=== PATIENT | female | born 1970 | race Caucasian/White ===

== ENCOUNTER 2017-07-07 22:42 | Emergency (ER) | payer BC, MEDICAID ==
[2017-07-07] MEDS ORDERED: LORAZEPAM INJ 2 MG/1 ML VIAL IV ONE (23:13)
[2017-07-07 23:56] LABS: ABSOLUTE BASOPHILS # (AUTO) 0.1 10^3/uL (0.0-0.2); ABSOLUTE EOSINOPHILS # (AUTO) 0.3 10^3/uL (0.0-0.6); ABSOLUTE LYMPHOCYTES (AUTO) 1.7 10^3/uL (0.5-4.7); ABSOLUTE MONOCYTES (AUTO) 0.5 10^3/uL (0.1-1.4); ABSOLUTE NEUT (AUTO) 5.4 10^3/uL (1.7-8.2); BASOPHILS % (AUTO) 0.8 % (0-2); EOSINOPHILS % (AUTO) 3.3 % (0-6); MEAN CORPUSCULAR HEMOGLOBIN 28.6 pg (27.0-33.4); MEAN CORPUSCULAR HGB CONC 33.3 g/dL (32.0-36.0); MEAN CORPUSCULAR VOLUME 86 fl (80-97); MONOCYTES % (AUTO) 6.5 % (3-13); PLATELET COUNT 229 10^3/uL (150-450); RED BLOOD COUNT 4.88 10^6/uL (3.72-5.28); RED CELL DISTRIBUTION WIDTH 13.3 % (11.5-14.0); SEGMENTED NEUTROPHILS % (AUTO) 68.4 % (42-78); TOTAL CELLS COUNTED % (AUTO) 100 %; WHITE BLOOD COUNT 7.9 10^3/uL (4.0-10.5)
[2017-07-08 00:01] LABS: ALANINE AMINOTRANSFERASE 506 U/L (9-52); ALBUMIN 4.2 g/dL (3.5-5.0); ALKALINE PHOSPHATASE 257 U/L (38-126); ANION GAP 11 (5-19); BILIRUBIN,DIRECT 0.5 mg/dL (0.0-0.4); BILIRUBIN,TOTAL 0.7 mg/dL (0.2-1.3); BLOOD UREA NITROGEN 19 mg/dL (7-20); CALCIUM 9.3 mg/dL (8.4-10.2); CARBON DIOXIDE 24 mmol/L (22-30); CHLORIDE 103 mmol/L (98-107); CREATINE KINASE 91 U/L (30-135); GLUCOSE 116 mg/dL (75-110); LIPASE 200.2 U/L (23-300); POTASSIUM 4.3 mmol/L (3.6-5.0); SODIUM 137.6 mmol/L (137-145); TOTAL PROTEIN 7.1 g/dL (6.3-8.2)
--- NOTE | 2017-07-08 00:03 | RADIOLOGY REPORT (SQ) ---
EXAM DESCRIPTION: CHEST SINGLE VIEW COMPLETED DATE/TIME: 07/07/2017 11:55 pm REASON FOR STUDY: cp COMPARISON: None. EXAM PARAMETERS: NUMBER OF VIEWS: One view. TECHNIQUE: Single frontal radiographic view of the chest acquired. RADIATION DOSE: NA LIMITATIONS: None. FINDINGS: LUNGS AND PLEURA: No opacities, masses or pneumothorax. No pleural effusion. MEDIASTINUM AND HILAR STRUCTURES: No masses. Contour normal. HEART AND VASCULAR STRUCTURES: Heart normal in size. Normal vasculature. BONES: No acute findings. HARDWARE: None in the chest. OTHER: No other significant finding. IMPRESSION: NO ACUTE RADIOGRAPHIC FINDING IN THE CHEST. TECHNICAL DOCUMENTATION: JOB ID: [id number] 2010 [employer]- All Rights Reserved Reading location - IP/workstation name: [email or web address]
[2017-07-08 00:12] LABS: ASPARTATE AMINO TRANSFERASE 1117 U/L (14-36)
[2017-07-08 00:14] LABS: TROPONIN I < 0.012 ng/mL
[2017-07-08] MEDS ORDERED: LORAZEPAM INJ 2 MG/1 ML VIAL IV ONE (00:33)
--- NOTE | 2017-07-08 00:33 | ER Document Report ---
ED Cardiac - General Chief Complaint: Chest Pain Stated Complaint: CHEST PAIN Time Seen by Provider: 07/07/17 23:03 Mode of Arrival: Ambulatory Information source: Patient Notes: Patient is a 46-year-old female who presents to the ER today for chest pain That started yesterday. Patient states that it feels like her acid reflux. Patient admits to history of anxiety as well and states that she is feeling anxious. She denies any shortness of breath, nausea, vomiting, diarrhea, fevers or chills. Patient has not taken anything for her symptoms today. TRAVEL OUTSIDE OF THE [place] IN LAST 30 DAYS: No - Related Data Allergies/Adverse Reactions: doxycycline Allergy (Severe, Verified 11/25/15 11:44) Shortness of Breath codeine Allergy (Verified 11/05/15 07:08) erythromycin base Allergy (Verified 11/05/15 07:08) Penicillins Allergy (Verified 11/05/15 07:08) acetaminophen [From Percocet] Adverse Reaction (Verified 11/24/15 10:53) oxycodone [From Percocet] Adverse Reaction (Verified 11/24/15 10:53) Past Medical History - General Information source: Patient - Social History Smoking Status: Unknown if Ever Smoked Family History: Reviewed & Not Pertinent Patient has suicidal ideation: No Patient has homicidal ideation: No - Past Medical History Cardiac Medical History: Denies: Hx Heart Attack, Hx Hypertension - VENOUS STENOSIS Pulmonary Medical History: Reports: Hx Asthma Neurological Medical History: Denies: Hx Cerebrovascular Accident, Hx Seizures Renal/ Medical History: Reports: Hx End Stage Renal Disease - Stage 3. Denies : Hx Peritoneal Dialysis GI Medical History: Reports: Hx Hiatal Hernia. Denies: Hx Hepatitis, Hx Ulcer Infectious Medical History: Denies: Hx Hepatitis Past Surgical History: Denies: Hx Hysterectomy, Hx Mastectomy, Hx Open Heart Surgery, Hx Pacemaker - Immunizations Hx Diphtheria, Pertussis, Tetanus Vaccination: Yes Review of Systems - Review of Systems Constitutional: No symptoms reported EENT: No symptoms reported Cardiovascular: See HPI Respiratory: No symptoms reported Gastrointestinal: See HPI Genitourinary: No symptoms reported Female Genitourinary: No symptoms reported Musculoskeletal: No symptoms reported Skin: No symptoms reported Hematologic/Lymphatic: No symptoms reported Neurological/Psychological: See HPI Physical Exam - Vital signs Vitals: Temp Pulse Resp BP Pulse Ox 98.3 F 77 18 122/74 100 05/04/18 22:57 07/07/17 22:57 07/07/17 22:57 07/07/17 22:57 07/07/17 22:57 - Notes Notes: PHYSICAL EXAMINATION: GENERAL: Anxious, is n no acute distress. HEAD: Atraumatic, normocephalic. EYES: Pupils equal round and reactive to light, extraocular movements intact, sclera anicteric, conjunctiva are normal. ENT: ear canals without erythema or foreign body, TMs pearly syed with good bony landmarks, nares patent, oropharynx clear without exudates. Moist mucous membranes. Airway patent NECK: Normal range of motion, supple without lymphadenopathy LUNGS: CTAB and equal. No wheezes rales or rhonchi. HEART: Regular rate and rhythm without murmurs ABDOMEN: Soft, no tenderness. No guarding, no rebound BACK: no vertebral tenderness, normal ROM GI/: no CVA tenderness EXTREMITIES: Normal range of motion, no pitting edema. No cyanosis. NEUROLOGICAL: Cranial nerves grossly intact. Normal sensory/motor exams. PSYCH: Anxious SKIN: Warm, Dry, normal turgor, no rashes or lesions noted Course - Re-evaluation Re-evalutation: 07/18/17 09:32 EKG reveals a normal sinus rhythm without evidence of ischemia, troponin negative, liver enzymes are quite elevated today, patient states that she does have a history of this and was supposed to follow-up with gastroenterology but has not. Chest x-ray negative for any acute pathology, patient has no pain to the right upper quadrant of the abdomen, chest pain has subsided with GI cocktail. - Vital Signs Vital signs: Temp Pulse Resp BP Pulse Ox 98.3 F 77 18 152/87 H 97 07/07/17 22:57 07/07/17 22:57 07/08/17 00:01 07/08/17 00:01 07/08/17 00:01 - Laboratory Result Diagrams: 07/07/17 23:13 07/07/17 23:13 Laboratory results interpreted by me: 07/07/17 23:13 Glucose 116 H Direct Bilirubin 0.5 H AST 1117 H ALT 506 H Alkaline Phosphatase 257 H Discharge - Discharge Clinical Impression: Elevated liver enzymes, Anxiety, Chest pain Condition: Stable Disposition: HOME, SELF-CARE Additional Instructions: Return immediately for any new or worsening symptoms. Follow up with primary care provider, call tomorrow to make followup appointment. Referrals: FELICIA BARKLEY MD [Primary Care Provider] - Follow up as needed GREGORIO REA MD [ACTIVE STAFF] - Follow up as needed
[2017-07-08 00:51] VITALS: BP 152/87
--- NOTE | 2017-07-08 20:20 | EKG REPORT ---
SEVERITY:- NORMAL ECG - SINUS RHYTHM : Confirmed by: Aniya Gibson 08-Jul-2017 20:19:23
== END 2017-07-08 00:54 | disposition home or self-care (01) ==
LOC: ER 22:42
DX: R07.9 Chest pain, unspecified (principal); F41.9 Anxiety disorder, unspecified; R74.8 Abnormal levels of other serum enzymes; I10 Essential (primary) hypertension; J45.909 Unspecified asthma, uncomplicated; Z88.1 Allergy status to other antibiotic agents; Z88.5 Allergy status to narcotic agent; Z88.0 Allergy status to penicillin
CPT/HCPCS: 93005; 99285; 96374; 36415; 82553; 82550; 83690; 85025; 80053; 84484; 71045; 93010; J2060 ×2

== ENCOUNTER → 2017-07-10 | Outpatient (CLI) | payer MEDICAID ==
[2017-07-10 12:12] LABS: ALANINE AMINOTRANSFERASE 692 U/L (9-52); ALBUMIN 3.9 g/dL (3.5-5.0); ALKALINE PHOSPHATASE 322 U/L (38-126); ASPARTATE AMINO TRANSFERASE 275 U/L (14-36); BILIRUBIN,DIRECT 0.3 mg/dL (0.0-0.4); BILIRUBIN,TOTAL 0.4 mg/dL (0.2-1.3); TOTAL PROTEIN 6.8 g/dL (6.3-8.2)
== END ==
LOC: LAB 11:33
PROVIDERS: ATTEND Family Medicine
DX: R74.0 Nonspecific elevation of levels of transaminase and lactic acid dehydrogenase [LDH] (principal)
CPT/HCPCS: 36415; 80076

== ENCOUNTER → 2017-07-20 | Outpatient (CLI) | payer MEDICAID ==
--- NOTE | 2017-07-20 08:13 | WOMENS IMAGING REPORT ---
EXAM DESCRIPTION: U/S ABDOMEN LIMITED COMPLETED DATE/TIME: 07/20/2017 8:02 am REASON FOR STUDY: NONSPECIFIC ELEVATION OF LEVELS OF TRANSAMNS LACTIC ACID R74.0 NONSPEC ELEV OF LEVELS OF TRANSAMNS LACTIC ACID DEHY COMPARISON: None. TECHNIQUE: Dynamic and static grayscale images acquired of the abdomen and recorded on PACS. Additio nal selected color Doppler and spectral images recorded. LIMITATIONS: Study is limited due to overlying bowel gas. FINDINGS: PANCREAS: Pancreas could not be visualized due to overlying bowel gas. LIVER: No masses. Echotexture normal. LIVER VASCULATURE: Normal directional flow of the main portal vein and hepatic veins. GALLBLADDER: Status post cholecystectomy ULTRASOUND-DETECTED DILL'S SIGN: Negative. INTRAHEPATIC DUCTS AND COMMON DUCT: CBD and intrahepatic ducts normal caliber. No filling defects. INFERIOR VENA CAVA: Normal flow. AORTA: The abdominal aorta was not well visualized due to overlying bowel gas. RIGHT KIDNEY: 9.6 cm in length. Normal echogenicity. No solid or suspicious masses. No hydrone phrosis. No calcifications. PERITONEAL AND RIGHT PLEURAL SPACE: No ascites or effusions. OTHER: No other significant findings. IMPRESSION: Limited study as noted above. No significant intra-abdominal abnormalities were identif ied. TECHNICAL DOCUMENTATION: JOB ID: [id number] [employer]- All Rights Reserved Reading location - IP/workstation name: [email or web address]
== END ==
LOC: RAD 06:50
PROVIDERS: ATTEND Family Medicine
DX: R74.0 Nonspecific elevation of levels of transaminase and lactic acid dehydrogenase [LDH] (principal)
CPT/HCPCS: 76705

== ENCOUNTER → 2017-07-20 | Outpatient (CLI) | payer MEDICAID ==
[2017-07-20 12:48] LABS: ALANINE AMINOTRANSFERASE 69 U/L (9-52); ALBUMIN 3.9 g/dL (3.5-5.0); ALKALINE PHOSPHATASE 141 U/L (38-126); ASPARTATE AMINO TRANSFERASE 28 U/L (14-36); BILIRUBIN,DIRECT 0.2 mg/dL (0.0-0.4); BILIRUBIN,TOTAL 0.2 mg/dL (0.2-1.3); IRON(TIBC) 60.9 ug/dL (37-170); TOTAL PROTEIN 6.3 g/dL (6.3-8.2)
[2017-07-21 14:41] LABS: HEPATITIS B CORE AB IGM Negative (Negative); HEPATITIS B CORE AB TOT Negative (Negative); HEPATITIS BE AB Negative (Negative); HEPATITIS BE ANTIGEN Negative (Negative); HEPATITIS C VIRUS AB <0.1 s/co ratio (0.0-0.9); HEPATITS B SURFACE ANTIGEN Negative (Negative)
[2017-07-21 20:09] LABS: ACTIN (SMOOTH MUSCLE) ANTIBODY 8 Units (0-19); HEPATITIS B SURFACE AB QUAL Non Reactive (.); MITOCHONDRIAL (M2) ANTIBODY 4.7 Units (0.0-20.0)
== END ==
LOC: LAB 11:52
PROVIDERS: ATTEND Physician Assistant Surgical
DX: R10.11 Right upper quadrant pain (principal); R94.5 Abnormal results of liver function studies
CPT/HCPCS: 36415; 80076; 83540; 83550; 86038; 86235; 86256; 86704; 86705; 86706; 86707; 86803; 87340; 87350

== ENCOUNTER 2017-08-04 12:29 | Outpatient (CLI) | payer MEDICAID ==
[~2017-08-04 12:29] MED LIST: FERRIC CARBOXYMALTOSE 750 MG in NORMAL SALINE 250 ML IV PRN; NORMAL SALINE 250 ML IV PRN
[2017-08-04 12:49] VITALS: BP 102/84
== END 2017-08-04 14:01 | disposition home or self-care (01) ==
LOC: II 12:29 → 5TH 12:34 → II 14:01
PROVIDERS: ATTEND Internal Medicine
PROC: 3E033GC Introduction of Other Therapeutic Substance into Peripheral Vein, Percutaneous Approach (ICD-10-PCS; principal; 2017-08-04)
DX: D50.8 Other iron deficiency anemias (principal); K90.9 Intestinal malabsorption, unspecified
CPT/HCPCS: 96367; J7050; J1439; 96365

== ENCOUNTER 2017-08-11 07:40 | Outpatient (CLI) | payer SELFPAY ==
[2017-08-11] MEDS ORDERED: FERRIC CARBOXYMALTOSE 750 MG in NORMAL SALINE 250 ML IV PRN (08:00)
[2017-08-11] MEDS ORDERED: NORMAL SALINE 250 ML IV PRN (08:00)
[2017-08-11 08:32] VITALS: BP 117/72
== END 2017-08-11 10:18 | disposition home or self-care (01) ==
LOC: II 07:40 → 5TH 07:45 → II 10:18
PROVIDERS: ATTEND Internal Medicine
PROC: 3E033GC Introduction of Other Therapeutic Substance into Peripheral Vein, Percutaneous Approach (ICD-10-PCS; principal; 2017-08-11)
DX: Z76.89 Persons encountering health services in other specified circumstances (principal)
CPT/HCPCS: 96367; J7050; J1439; 96374

== ENCOUNTER 2017-10-20 16:16 | Emergency (ER) | payer MEDICAID ==
[2017-10-20 16:24] VITALS: BP 124/69
--- NOTE | 2017-10-20 16:49 | ER Document Report ---
ED Medical Screen (RME) - General Chief Complaint: Electrical Burn Stated Complaint: ELECTRICAL SHOCK Time Seen by Provider: 10/20/17 16:48 Notes: Chief complaint: Electric shock History of complain:( obtained from----patient)47 years old female was electrocuted while vacuuming on the right hand having pain, from right index finger all the way to the elbow. Denies any chest pain or palpitation. Onset: Sudden Duration: Just prior to arrival Severity: Mild Quality: Sharp Context: As above Exacerbating factor and relieving factors: None REVIEW OF SYSTEMS: CONSTITUTIONAL : Denies fever, chills, or sweats. Denies recent illness. EENT: Denies eye, ear, throat, or mouth pain or symptoms. Denies nasal or sinus congestion or discharge. Denies throat, tongue, or mouth swelling or difficulty swallowing. CARDIOVASCULAR: Denies chest pain. Denies palpitations or racing or irregular heart beat. Denies ankle edema. RESPIRATORY: Denies cough, cold, or chest congestion. Denies shortness of breath, difficulty breathing, or wheezing. GASTROINTESTINAL: Denies distention. Denies nausea, vomiting, or diarrhea. Denies blood in vomitus, stools, or per rectum. Denies black, tarry stools. Denies constipation. GENITOURINARY: Denies difficulty urinating, painful urination, burning, frequency, blood in urine, or discharge. FEMALE GENITOURINARY: Denies vaginal bleeding, heavy or abnormal periods, irregular periods. Denies vaginal discharge or odor. MUSCULOSKELETAL: Denies back or neck pain or stiffness. Denies joint pain or swelling. SKIN: Denies rash, lesions or sores. HEMATOLOGIC : Denies easy bruising or bleeding. LYMPHATIC: Denies swollen, enlarged glands. NEUROLOGICAL: Denies confusion or altered mental status. Denies passing out or loss of consciousness. Denies dizziness or lightheadedness. Denies headache. Denies weakness or paralysis or loss of use of either side. Denies problems with gait or speech. Denies sensory loss, numbness, or tingling. Denies seizures. PSYCHIATRIC: Denies anxiety or stress. Denies depression, suicidal ideation, or homicidal ideation. ALL OTHER SYSTEMS REVIEWED AND NEGATIVE. PHYSICAL EXAMINATION: GENERAL: Well-appearing, well-nourished and in no acute distress. HEAD: Atraumatic, normocephalic. EYES: Pupils equal round and reactive to light, extraocular movements intact, conjunctiva are normal. ENT: Nares patent, oropharynx clear without exudates. Moist mucous membranes. NECK: Normal range of motion, supple without lymphadenopathy LUNGS: Breath sounds clear to auscultation bilaterally and equal. No wheezes rales or rhonchi. HEART: Regular rate and rhythm without murmurs ABDOMEN: Soft, nontender, nondistended abdomen. No guarding, no rebound. No masses appreciated. Examination of genitals-deferred Musculoskeletal: Normal range of motion, no pitting or edema. No cyanosis. Tenderness over the right index finger and right forearm, no erythema noted no jim noted. Normal range of motion NEUROLOGICAL: Cranial nerves grossly intact. Normal speech, normal gait. Normal sensory, motor exams PSYCH: Normal mood, normal affect. SKIN: Warm, Dry, normal turgor, no rashes or lesions noted. Dictation was performed using [employer] voice recognition software TRAVEL OUTSIDE OF THE [place] IN LAST 30 DAYS: No - HPI Notes: 10/20/17 18:33 Dictated - Related Data Allergies/Adverse Reactions: doxycycline Allergy (Severe, Verified 10/20/17 16:17) Shortness of Breath codeine Allergy (Verified 10/20/17 16:17) erythromycin base Allergy (Verified 10/20/17 16:17) Penicillins Allergy (Verified 10/20/17 16:17) acetaminophen [From Percocet] Adverse Reaction (Verified 10/20/17 16:17) oxycodone [From Percocet] Adverse Reaction (Verified 10/20/17 16:17) Past Medical History - General Information source: Patient - Social History Cigarette use (# per day): No Frequency of alcohol use: None Drug Abuse: None Lives with: Family Family history: Reviewed & Not Pertinent - Past Medical History Cardiac Medical History: Denies: Hx Heart Attack, Hx Hypertension - VENOUS STENOSIS Pulmonary Medical History: Reports: Hx Asthma Neurological Medical History: Denies: Hx Cerebrovascular Accident, Hx Seizures Renal/ Medical History: Reports: Hx End Stage Renal Disease - Stage 3. Denies : Hx Peritoneal Dialysis GI Medical History: Reports: Hx Hiatal Hernia. Denies: Hx Hepatitis, Hx Ulcer Infectious Medical History: Denies: Hx Hepatitis Past Surgical History: Denies: Hx Hysterectomy, Hx Mastectomy, Hx Open Heart Surgery, Hx Pacemaker - Immunizations Hx Diphtheria, Pertussis, Tetanus Vaccination: Yes Review of Systems - Review of Systems Notes: Dictated Physical Exam - Vital signs Vitals: Temp Pulse Resp BP Pulse Ox 98.7 F 72 18 124/69 94 10/20/17 16:21 10/20/17 16:21 10/20/17 16:21 10/20/17 16:21 10/20/17 16:21 - Notes Notes: Dictated Course - Re-evaluation Re-evalutation: 10/20/17 18:34 Uneventful - Vital Signs Vital signs: Temp Pulse Resp BP Pulse Ox 98.7 F 72 18 124/69 94 10/20/17 16:21 10/20/17 16:21 10/20/17 16:21 10/20/17 16:21 10/20/17 16:21 - Laboratory Result Diagrams: 10/20/17 17:26 Doctor's Discharge - Discharge Clinical Impression: Electrocution and nonfatal effects of electric current Qualifiers: Encounter type: initial encounter Qualified Code(s): T75.4XXA - Electrocution, initial encounter Condition: Fair Disposition: HOME, SELF-CARE Instructions: Electrical Injury ([facility]) Prescriptions: Hydrocodone/Acetaminophen [Hydrocodon-Acetaminophen 5-325] 1 each PO TID #14 tablet Referrals: BRONSON ELISE PA-C [Primary Care Provider] - Follow up as needed
[2017-10-20 18:01] LABS: ABSOLUTE BASOPHILS # (AUTO) 0.1 10^3/uL (0.0-0.2); ABSOLUTE EOSINOPHILS # (AUTO) 0.4 10^3/uL (0.0-0.6); ABSOLUTE LYMPHOCYTES (AUTO) 1.7 10^3/uL (0.5-4.7); ABSOLUTE MONOCYTES (AUTO) 0.5 10^3/uL (0.1-1.4); ABSOLUTE NEUT (AUTO) 5.4 10^3/uL (1.7-8.2); BASOPHILS % (AUTO) 0.9 % (0-2); EOSINOPHILS % (AUTO) 4.7 % (0-6); HEMATOCRIT 40.6 % (36.0-47.0); HEMOGLOBIN 13.5 g/dL (12.0-15.5); LYMPHOCYTES % (AUTO) 21.3 % (13-45); MEAN CORPUSCULAR HEMOGLOBIN 29.6 pg (27.0-33.4); MEAN CORPUSCULAR HGB CONC 33.3 g/dL (32.0-36.0); MEAN CORPUSCULAR VOLUME 89 fl (80-97); MONOCYTES % (AUTO) 6.6 % (3-13); PLATELET COUNT 179 10^3/uL (150-450); RED BLOOD COUNT 4.57 10^6/uL (3.72-5.28); RED CELL DISTRIBUTION WIDTH 13.8 % (11.5-14.0); SEGMENTED NEUTROPHILS % (AUTO) 66.5 % (42-78); TOTAL CELLS COUNTED % (AUTO) 100 %; WHITE BLOOD COUNT 8.1 10^3/uL (4.0-10.5)
--- NOTE | 2017-10-20 18:41 | EKG REPORT ---
SEVERITY:- NORMAL ECG - SINUS RHYTHM : Confirmed by: Malcolm Farris MD 20-Oct-2017 18:40:37
== END 2017-10-20 18:45 | disposition home or self-care (01) ==
LOC: ER 16:16
DX: T75.4XXA Electrocution, initial encounter (principal); M79.644 Pain in right finger(s); W86.0XXA Exposure to domestic wiring and appliances, initial encounter; Y93.E3 Activity, vacuuming; I10 Essential (primary) hypertension; J45.909 Unspecified asthma, uncomplicated; Z88.1 Allergy status to other antibiotic agents; Z88.5 Allergy status to narcotic agent
CPT/HCPCS: 36415; 82550; 85025; 93005; 93010; 99285

== ENCOUNTER → 2017-12-07 | Outpatient (CLI) | payer MEDICAID ==
[2017-12-07 16:55] LABS: ALANINE AMINOTRANSFERASE 29 U/L (9-52); ALBUMIN 3.7 g/dL (3.5-5.0); ALKALINE PHOSPHATASE 79 U/L (38-126); ASPARTATE AMINO TRANSFERASE 21 U/L (14-36); BILIRUBIN,DIRECT 0.3 mg/dL (0.0-0.4); BILIRUBIN,TOTAL 0.4 mg/dL (0.2-1.3); TOTAL PROTEIN 6.4 g/dL (6.3-8.2)
== END ==
LOC: LAB 15:28
PROVIDERS: ATTEND Internal Medicine Gastroenterology
DX: R94.5 Abnormal results of liver function studies (principal)
CPT/HCPCS: 36415; 80076

== ENCOUNTER 2019-03-28 06:51 | Day surgery (SDC) | payer MEDICAID ==
[2019-03-27 09:22] LABS: HEMATOCRIT 40.7 % (36.0-47.0); HEMOGLOBIN 13.7 g/dL (12.0-15.5); MEAN CORPUSCULAR HEMOGLOBIN 29.4 pg (27.0-33.4); MEAN CORPUSCULAR HGB CONC 33.7 g/dL (32.0-36.0); MEAN CORPUSCULAR VOLUME 87 fl (80-97); PLATELET COUNT 201 10^3/uL (150-450); RED BLOOD COUNT 4.66 10^6/uL (3.72-5.28); RED CELL DISTRIBUTION WIDTH 13.9 % (11.5-14.0); WHITE BLOOD COUNT 5.2 10^3/uL (4.0-10.5)
[2019-03-27 09:37] LABS: APPEARANCE,URINE CLEAR; BILIRUBIN,URINE NEGATIVE (NEGATIVE); COLOR,URINE YELLOW; GLUCOSE, URINE NEGATIVE (NEGATIVE); KETONES,URINE NEGATIVE (NEGATIVE); LEUKOCYTE ESTERASE,URINE NEGATIVE (NEGATIVE); NITRITE,URINE NEGATIVE (NEGATIVE); PROTEIN,URINE NEGATIVE (NEGATIVE); URINE SPECIFIC GRAVITY 1.023; UROBILINOGEN,URINE NEGATIVE mg/dL (<2.0)
--- NOTE | 2019-03-27 13:25 | EKG REPORT ---
SEVERITY:- NORMAL ECG - SINUS RHYTHM : Confirmed by: Malcolm Farris MD 27-Mar-2019 13:25:27
[~2019-03-28 06:51] MED LIST changes: +CEFAZOLIN SODIUM 1 GM in DEXTROSE 5%-WATER 50 ML IV PRN; -FERRIC CARBOXYMALTOSE 750 MG in NORMAL SALINE 250 ML IV PRN; +LACTATED RINGERS 1000 ML IV PRN; +LIDOCAINE 0.5% INJ-PF (5 MG/ML) 50 ML SDV SUBCUT PRN; -NORMAL SALINE 250 ML IV PRN
[2019-03-28] MEDS ORDERED: CEFAZOLIN 1 GM/D5W RTU 1 GM/50 ML RTUPB IV ONE (07:25)
[2019-03-28] MEDS ORDERED: MIDAZOLAM 2 MG/2 ML INJ ONE ×2 (07:55→09:25)
[2019-03-28] MEDS ORDERED: KETOROLAC TROMETHAMINE 60 MG/2 ML SDV ONE (09:24)
[2019-03-28] MEDS ORDERED: FENTANYL CITRATE INJ/PF 100 MCG/2 ML AMPUL ONE ×2 (09:24→10:35)
[2019-03-28] MEDS ORDERED: PROPOFOL INJ 200 MG/20 ML VIAL IV ONE (09:25)
[2019-03-28] MEDS ORDERED: MEPERIDINE HCL/PF INJ 25 MG/1 ML DISP.SYRIN IV PRN (09:55)
[2019-03-28] MEDS ORDERED: PROMETHAZINE HCL INJ 25 MG/1 ML VIAL IV PRN ×2 (09:55)
[2019-03-28] MEDS ORDERED: DIPHENHYDRAMINE HCL 50 MG/ML VIAL IV PRN (09:55)
[2019-03-28] MEDS ORDERED: FENTANYL CITRATE INJ/PF 100 MCG/2 ML AMPUL IV PRN ×3 (09:55)
[2019-03-28] MEDS ORDERED: ONDANSETRON HCL INJ/PF 4 MG/2 ML SDV IV PRN (09:55)
--- NOTE | 2019-03-28 10:15 | Operative Report ---
Operative Report DATE OF SURGERY: 03/28/19 PREOPERATIVE DIAGNOSIS: PMB POSTOPERATIVE DIAGNOSIS: Same plus endometrial atrophy OPERATION: Hysteroscopy D&C SURGEON: JALYN SHAIKH ANESTHESIA: LMAC TISSUE REMOVED OR ALTERED: Endometrial tissue COMPLICATIONS: None PROCEDURE: Patient placed in a dorsal lithotomy position prepped draped sterile fashion. Speculum was placed there was no visible cervix there was a pinhole opening at the apex of the vagina with blood extruding from it but no definitive cervix could be identified. The opening was dilated so hysteroscopy placed. Anthony was then performed with findings of atrophic uterine mucosa as no definitive polyps or submucous fibroids were noted. Scope was removed and sharp curettage was p erformed with a minimal amount of tissue being recovered. The speculum was removed and procedure terminated she was taken to recovery room in good condition.
[2019-03-28] MEDS ORDERED: ONDANSETRON HCL 8 MG TABLET PO PRN (10:28)
[2019-03-28] MEDS ORDERED: RINGERS SOLUTION,LACTATED 1,000 ML IV PRN (10:34)
[2019-03-28] MEDS ORDERED: IBUPROFEN 800 MG TABLET PO PRN (10:35)
[2019-03-28] MEDS ORDERED: OXYCODONE-ACETAMINOPHEN 5-325 MG TABLET PO PRN ×2 (10:38)
[2019-03-28 12:45] VITALS: BP 105/66
[2019-03-28] MEDS ORDERED: IBUPROFEN 800 MG TABLET PO SCH (14:00)
== END 2019-03-28 12:40 | disposition home or self-care (01) ==
LOC: OROUT 06:51
PROVIDERS: ATTEND Obstetrics & Gynecology Gynecology
DX: N93.8 Other specified abnormal uterine and vaginal bleeding (principal); N85.8 Other specified noninflammatory disorders of uterus; Z88.0 Allergy status to penicillin; Z88.1 Allergy status to other antibiotic agents; Z88.5 Allergy status to narcotic agent; I12.9 Hypertensive chronic kidney disease with stage 1 through stage 4 chronic kidney disease, or unspecified chronic kidney disease; N18.3 Chronic kidney disease, stage 3 (moderate); Z86.718 Personal history of other venous thrombosis and embolism; J45.909 Unspecified asthma, uncomplicated; D64.9 Anemia, unspecified; Z79.899 Other long term (current) drug therapy; N72 Inflammatory disease of cervix uteri; Z79.51 Long term (current) use of inhaled steroids; E66.9 Obesity, unspecified
CPT/HCPCS: 93005; 36415; 85027; 81025; 81001; 88305 ×2; 93010; 58558; J2250; J0690; J1885; J3010; J2704; 952

== ENCOUNTER 2019-05-22 05:10 | Inpatient (IN) | payer MEDICAID ==
[2019-05-15 09:55] LABS: HEMATOCRIT 42.7 % (36.0-47.0); HEMOGLOBIN 14.5 g/dL (12.0-15.5); MEAN CORPUSCULAR VOLUME 88 fl (80-97); PLATELET COUNT 225 10^3/uL (150-450); RED BLOOD COUNT 4.83 10^6/uL (3.72-5.28); RED CELL DISTRIBUTION WIDTH 14.6 % (11.5-14.0); WHITE BLOOD COUNT 6.3 10^3/uL (4.0-10.5)
[2019-05-15 10:04] LABS: APPEARANCE,URINE SLIGHTLY-CLOUDY; BILIRUBIN,URINE NEGATIVE (NEGATIVE); COLOR,URINE YELLOW; GLUCOSE, URINE NEGATIVE (NEGATIVE); KETONES,URINE NEGATIVE (NEGATIVE); LEUKOCYTE ESTERASE,URINE NEGATIVE (NEGATIVE); NITRITE,URINE NEGATIVE (NEGATIVE); PROTEIN,URINE NEGATIVE (NEGATIVE); URINE SPECIFIC GRAVITY 1.028; UROBILINOGEN,URINE NEGATIVE mg/dL (<2.0)
[2019-05-15 10:16] LABS: ADD MANUAL MICROSCOPIC YES
[2019-05-15 10:17] LABS: BACTERIA,URINE TRACE /HPF
[2019-05-15 10:25] LABS: ALBUMIN 4.3 g/dL (3.5-5.0); ALKALINE PHOSPHATASE 106 U/L (38-126); ANION GAP 6 (5-19); ASPARTATE AMINO TRANSFERASE 36 U/L (14-36); BILIRUBIN,TOTAL 0.4 mg/dL (0.2-1.3); BLOOD UREA NITROGEN 14 mg/dL (7-20); CALCIUM 8.6 mg/dL (8.4-10.2); CARBON DIOXIDE 28 mmol/L (22-30); CHLORIDE 104 mmol/L (98-107); GLUCOSE 87 mg/dL (75-110); POTASSIUM 4.4 mmol/L (3.6-5.0); TOTAL PROTEIN 6.9 g/dL (6.3-8.2)
--- NOTE | 2019-05-15 10:25 | RADIOLOGY REPORT (SQ) ---
EXAM DESCRIPTION: CHEST PA/LATERAL COMPLETED DATE/TIME: 05/15/2019 10:17 am REASON FOR STUDY: PRE-OP COMPARISON: 07/07/2017 EXAM PARAMETERS: NUMBER OF VIEWS: two views TECHNIQUE: Digital Frontal and Lateral radiographic views of the chest acquired. RADIATION DOSE: NA LIMITATIONS: none FINDINGS: LUNGS AND PLEURA: No opacities, masses or pneumothorax. No pleural effusion. MEDIASTINUM AND HILAR STRUCTURES: No masses or contour abnormalities. HEART AND VASCULAR STRUCTURES: Heart normal size. No evidence for failure. BONES: No acute findings. HARDWARE: None in the chest. OTHER: No other significant finding. IMPRESSION: NO SIGNIFICANT RADIOGRAPHIC FINDING IN THE CHEST. TECHNICAL DOCUMENTATION: JOB ID: [id number] 2010 [employer]- All Rights Reserved Reading location - IP/workstation name: [email or web address]
--- NOTE | 2019-05-15 17:25 | EKG REPORT ---
SEVERITY:- NORMAL ECG - SINUS RHYTHM : Confirmed by: Aniya Gibson 15-May-2019 17:24:42
[2019-05-22] MEDS ORDERED: CEFAZOLIN 1 GM/D5W RTU 0 GM/0 ML RTUPB IV ONE (05:18)
[2019-05-22] MEDS ORDERED: FENTANYL CITRATE INJ/PF 100 MCG/2 ML AMPUL ONE (06:59)
[2019-05-22] MEDS ORDERED: MIDAZOLAM 2 MG/2 ML INJ ONE ×2 (06:59→07:05)
[2019-05-22] MEDS ORDERED: HYDROMORPHONE HCL INJ/PF 2 MG/ML AMPULE ONE (06:59)
[2019-05-22] MEDS ORDERED: PROPOFOL INJ 200 MG/20 ML VIAL IV ONE (07:00)
[2019-05-22] MEDS ORDERED: BUPIVACAINE HCL 0.25 % INJ/PF (2.5 MG/1 ML) 30 ML VIAL ONE (07:02)
[2019-05-22] MEDS ORDERED: CEFAZOLIN 1 GM/D5W RTU 1 GM/50 ML RTUPB IV ONE (07:07)
[2019-05-22] MEDS ORDERED: MIDAZOLAM 2 MG/2 ML INJ IV ONE (07:15)
[2019-05-22] MEDS ORDERED: SUGAMMADEX SODIUM 200 MG/2 ML SDV IV ONE ×2 (07:49→07:51)
[2019-05-22] MEDS ORDERED: ALBUTEROL SULFATE HFA (90 MCG/PUFF) 8 GM MDI IH ONE (07:51)
--- NOTE | 2019-05-22 08:18 | Operative Report ---
Operative Report DATE OF SURGERY: 05/22/19 PREOPERATIVE DIAGNOSIS: DU B POSTOPERATIVE DIAGNOSIS: Same plus cardiac arrest OPERATION: planed MIR BS&O SURGEON: JALYN SHAIKH ANESTHESIA: GA COMPLICATIONS: Cardiac arrest PROCEDURE: Patient placed in a dorsal edition prepped draped sterile fashion. Speculum was placed in the vagina and the cervix visualized grasped with single-tooth tenaculum Hulka tenaculum was placed in single-tooth tenaculum was removed. Turned to the abdomen where a subumbilical incision was made. Vision site was injected with Marcaine. A subumbilical semilunar linear incision was made. Attempt was made to insert the trocar but did not enter the abdomen. Second attempt was made to enter the abdomen and during this attempt the patient exp erienced cardiac arrest. Chest compressions were immediately began and the code was called. After the patient was stabilized the subglottic incision was closed with 4-0 Vicryl in a subcu fashion. He was then transferred to ICU.
--- NOTE | 2019-05-22 08:54 | Operative Report ---
Operative Report DATE OF SURGERY: 05/22/19 PREOPERATIVE DIAGNOSIS: Acute cardiac dysrhythmia with arrest POSTOPERATIVE DIAGNOSIS: Same OPERATION: Placement of left subclavian central venous access catheter SURGEON: JAGJIT LUIS ANESTHESIA: GA TISSUE REMOVED OR ALTERED: None COMPLICATIONS: None ESTIMATED BLOOD LOSS: Scant INTRAOPERATIVE FINDINGS: See below PROCEDURE: I was called to the OR room 3 when CPR is in progress. Patient remained intubated, airway management by the anesthesia team. Dr. Kofi Zuniga was closing the laparoscopy incision. The left subclavian and the left internal jugular vein areas were prepped and draped in sterile fashion. Using Seldinger technique, left subclavian central venous access catheter was threaded into position without difficulty. The catheter was threaded all the way to the hub. There was excellent aspiration and flushed through all 3 lm. Catheter secured to the skin with 2-0 silk suture and a Biopatch and sterile dressing. Resuscitation continued. Patient was taken to the ICU in critical condition. Chest x-ray pending at time of this dictation.
[2019-05-22] MEDS ORDERED: ACETAMINOPHEN 325 MG TABLET PO PRN (09:07)
[2019-05-22] MEDS ORDERED: NORMAL SALINE 1000 ML 1,000 ML IV ONE (09:07)
[2019-05-22] MEDS ORDERED: ONDANSETRON HCL INJ/PF 4 MG/2 ML SDV IV PRN (09:07)
[2019-05-22] MEDS ORDERED: CALCIUM GLUCONATE 1000 MG/10 ML INJ IV ONE (09:17)
[2019-05-22] MEDS ORDERED: (PENDING PHARMACY ID) (Gabapentin Enacarbil [Horizant] 600 MG) PO SCH (10:00)
[2019-05-22] MEDS ORDERED: ROPINIROLE HCL 0.5 MG PO SCH (10:00)
[2019-05-22] MEDS ORDERED: TRAZODONE HCL 50 MG TABLET PO PRN (10:05)
--- NOTE | 2019-05-22 10:08 | RADIOLOGY REPORT (SQ) ---
EXAM DESCRIPTION: CHEST SINGLE VIEW COMPLETED DATE/TIME: 05/22/2019 9:33 am REASON FOR STUDY: Status post intubation central line placement COMPARISON: None. EXAM PARAMETERS: NUMBER OF VIEWS: One view. TECHNIQUE: Single frontal radiographic view of the chest acquired. RADIATION DOSE: NA LIMITATIONS: None. FINDINGS: LUNGS AND PLEURA: Incomplete inspiration with interstitial prominence, most conspicuous wi thin the perihilar regions an and right upper lobe. No pleural effusion or pneumothorax. MEDIASTINUM AND HILAR STRUCTURES: No masses. Contour normal. HEART AND VASCULAR STRUCTURES: Heart normal in size. Normal vasculature. BONES: No acute findings. HARDWARE: Left subclavian approach central venous catheter tip at right atrium. Endotracheal tube ti p nonvisualized. OTHER: No other significant finding. IMPRESSION: Mild perihilar and right upper lobe predominant interstitial opacities possibly edema or infectious/inflammatory process. Left subclavian approach central venous catheter tip at right atrium. No pneumothorax. No endotrach eal tube tip visualized. TECHNICAL DOCUMENTATION: JOB ID: [id number] 2010 [employer]- All Rights Reserved Reading location - IP/workstation name: [email or web address]
[2019-05-22 10:16] LABS: CREATINE KINASE MB 0.77 ng/mL (<4.55); TROPONIN I 0.027 ng/mL
[2019-05-22] MEDS: ENOXAPARIN SODIUM INJ 40 MG/0.4 ML DISP.SYRIN SUBCUT SCH (10:16)
[2019-05-22] MEDS: NORMAL SALINE 1000 ML 1,000 ML IV PRN (10:18)
[2019-05-22] MEDS: CALCIUM GLUCONATE 1 GM/NS 50 ML RTU IV SCH ×2 (10:21→11:21)
[2019-05-22] MEDS: ROPINIROLE HCL 1 MG TABLET PO SCH (11:20)
[2019-05-22] MEDS: FLUOXETINE HCL 20 MG CAPSULE PO SCH ×2 (11:20→17:43)
--- NOTE | 2019-05-22 11:20 | EKG REPORT ---
SEVERITY:- BORDERLINE ECG - SINUS RHYTHM BORDERLINE PROLONGED QT INTERVAL : Confirmed by: Radha Wu MD 22-May-2019 11:19:43
[2019-05-22] MEDS: TIZANIDINE HCL 4 MG TABLET PO SCH (11:22)
--- NOTE | 2019-05-22 12:17 | CRITICAL CARE ADMISSION REPORT ---
HPI Date:: 05/22/19 Time:: 11:00 Reason for ICU Reason:: Bradycardic arrest in the OR HPI: This patient is a 48 yo woman who was to udergo an elective hysterectomy today. She was inducaed and the procedure atrated but in trying to get the trocar in the abdomen she had an episode of bradycardia. This lead to 30 seconds of CPR and one round of epinephrine. She arrived extubated and awake but sleepy. No further episodes. History obtained from:: Patient and OR staff. - Diagnosis/Plan (1) Bradycardia associated with anesthesia Is this a current diagnosis for this admission?: Yes Plan: Possibly related to peritoneal stimulation. Doubt primary cardiac disease but will ask Dr. Purdy to see. Formal echo ordered. Bedside echo shows some hypovolemia and good wall motion. Past Medical History Cardiac Medical History: Denies: Coronary Artery Disease - VENOUS STENOSIS, Myocardial Infarction, Hypertension Pulmonary Medical History: Reports: Asthma - MILD, Bronchitis, Pneumonia Denies: Chronic Obstructive Pulmonary Disease (COPD) Neurological Medical History: Denies: Seizures Renal/ Medical History: Reports: End Stage Renal Disease - Stage 3 GI Medical History: Reports: Hiatal Hernia Denies: Hepatitis Musculoskeltal Medical History: Reports: Arthritis - GENERALIZED Psychiatric Medical History: Reports: Depression Hematology: Reports: Anemia - IRON INFUSION Denies: Sickle Cell Disease Past Surgical History Past Surgical History: Denies: Amputation, Mastectomy, Pacemaker Social/Family History - Social History Smoking Status: Never Smoker Frequency of Alcohol Use: Rare - Medication/Allergies Home Medications: Fluoxetine HCl [Prozac 20 mg Capsule] 20 mg PO Q12 11/23/ Amlodipine Besylate [Norvasc 5 mg Tablet] 5 mg PO DAILY 05/15/19 Oxcarbazepine 600 mg PO Q12 05/15/19 Ropinirole HCl 0.5 mg PO QHS 05/15/19 Tizanidine HCl 4 mg PO QPM 05/15/19 Trazodone HCl 150 mg PO HSP PRN 05/15/19 Gabapentin [Neurontin 300 mg Capsule] 900 mg PO QHS 05/22/19 Allergies/Adverse Reactions: codeine Allergy (Severe, Verified 05/22/19 05:32) Shortness of Breath doxycycline Allergy (Severe, Verified 05/22/19 05:32) Shortness of Breath erythromycin base Allergy (Severe, Verified 05/22/19 05:32) rash Penicillins Allergy (Severe, Verified 05/22/19 05:32) Hives oxycodone [From Percocet] Adverse Reaction (Severe, Verified 05/22/19 05:32) n and v Review of Systems Constitutional: ABSENT: chills, fever(s), headache(s), weight gain, weight loss Eyes: ABSENT: visual disturbances Ears: ABSENT: hearing changes Cardiovascular: ABSENT: chest pain, dyspnea on exertion, edema, orthropnea, palpitations Respiratory: ABSENT: cough, hemoptysis Gastrointestinal: ABSENT: abdominal pain, constipation, diarrhea, hematemesis, hematochezia, nausea, vomiting Genitourinary: ABSENT: dysuria, hematuria Musculoskeletal: ABSENT: joint swelling Integumentary: ABSENT: rash, wounds Neurological: ABSENT: abnormal gait, abnormal speech, confusion, dizziness, focal weakness, syncope Psychiatric: ABSENT: anxiety, depression, homidical ideation, suicidal ideation Endocrine: ABSENT: cold intolerance, heat intolerance, polydipsia, polyuria Hematologic/Lymphatic: ABSENT: easy bleeding, easy bruising Physical Exam Vital Signs: Temp Pulse Resp BP Pulse Ox 96.0 F L 73 16 84/53 L 100 05/22/19 09:11 05/22/19 09:11 05/22/19 10:12 05/22/19 10:12 05/22/19 10:12 Intake & Output 05/21/19 05/22/19 05/23/19 06:59 06:59 06:59 Intake Total 0 Output Total 70 Balance 0 -70 Weight 87.09 kg Weight/Height Weight 87.09 kg Height 4 ft 10 in General appearance: PRESENT: no acute distress, cooperative, obese Head exam: PRESENT: atraumatic, normocephalic Eye exam: PRESENT: conjunctiva pink, EOMI, PERRLA. ABSENT: scleral icterus Ear exam: PRESENT: normal external ear exam Mouth exam: PRESENT: dry mucosa Respiratory exam: PRESENT: clear to auscultation wilver. ABSENT: rales, rhonchi, wheezes Cardiovascular exam: PRESENT: RRR. ABSENT: diastolic murmur, rubs, systolic murmur Vascular exam: PRESENT: normal capillary refill GI/Abdominal exam: PRESENT: normal bowel sounds, soft. ABSENT: distended, guarding, mass, organolmegaly, rebound, tenderness Rectal exam: PRESENT: deferred Extremities exam: PRESENT: full ROM. ABSENT: calf tenderness, clubbing, pedal edema Neurological exam: PRESENT: alert, awake, oriented to person, oriented to place, oriented to time, oriented to situation, CN II-XII grossly intact. ABSENT: motor sensory deficit Psychiatric exam: PRESENT: appropriate affect, normal mood. ABSENT: homicidal ideation, suicidal ideation Laboratory/Radiographs Laboratory Results: 05/15/19 09:26 05/15/19 09:26 05/22/19 09:26 Blood Type A POSITIVE Antibody Screen NEGATIVE 05/22/19 05/22/19 09:15 09:15 Creatine Kinase 54 CK-MB (CK-2) 0.77 Troponin I 0.027 Impressions: Chest X-Ray 05/22/19 00:00 IMPRESSION: Mild perihilar and right upper lobe predominant interstitial opacities possibly edema or infectious/inflammatory process. Left subclavian approach central venous catheter tip at right atrium. No pneumothorax. No endotracheal tube tip visualized. EKG: SR prolonged QT All labs, radiographs, diagnostic studies and EKGs were personally reviewed: Yes In addition, reports of radiographic and diagnostic studies were read: Yes Critical Time Critical Time (minutes): 40 -: The care of a critically ill patient is dynamic. This note represents a static moment in the admission process. Orders and treatments may be given simultaneously and urgently, and time is not appliance service representative of the treatment process. This patient requires Critical Care secondary to life threatening organ or limb dysfunction. Without Critical Care services, the patient is at risk for incr eased mortality and morbidity.
[2019-05-22] MEDS ORDERED: ROCURONIUM BROMIDE INJ 50 MG/5 ML VIAL IV ONE (14:12)
[2019-05-22] MEDS ORDERED: SUCCINYLCHOLINE CHLORIDE INJ 200 MG/10 ML VIAL ONE (14:12)
[2019-05-22] MEDS ORDERED: EPINEPHRINE INJ 1 MG/10 ML DISP.SYRIN ONE (15:10)
[2019-05-22] MEDS ORDERED: NALOXONE HCL INJ/PF 0.4 MG/1 ML SDV ONE (15:13)
[2019-05-22] MEDS ORDERED: TRAMADOL HCL 50 MG TABLET PO PRN ×2 (16:03→16:04)
[2019-05-22] MEDS ORDERED: CYANOCOBALAMIN (VITAMIN B-12) INJ 1000 MCG/1 ML VIAL IM SCH (16:15)
[2019-05-22] MEDS ORDERED: CALCIUM CARBONATE 500 MG TAB.CHEW PO ONE (16:52)
[2019-05-22] MEDS: CALCIUM CARBONATE 500 MG TAB.CHEW PO SCH ×2 (17:44→22:16)
[2019-05-22] MEDS: MORPHINE SULFATE 10 MG/ML INJ IV PRN (18:53)
--- NOTE | 2019-05-22 20:05 | PDOC CONSULTATION ---
Consultation-Blank Consultation: CARDIOLOGY CONSULTATION by Dr. Radha Rizo on 05/22/2019. Patient seen at 4 PM. 60 minutes spent with patient more than 50% of time spent in direct patient care. REASON FOR CONSULTATION: Patient status post bradycardia and pulseless electrical activity status post cardiac arrest. For cardiac evaluation. And preoperative cardiac risk assessment. CONSULT REQUESTING PHYSICIAN: Dr. Watson, dull coat mill operator . HISTORY OF PRESENT ILLNESS: Patient is a 40-year-old female who was to have elective hysterectomy. The patient had induction of anesthesia and subsequently when the storage battery inspector and tester made an incision in the abdomen and try to enter the abdomen with a trocar. The first attempt was not successful and hence when he tried to do the second attempt to enter the abdomen with the trocar the patient developed bradycardia and pulseless electrical activity and had brief CPR for about 30 seconds. She also had a central line placed. She is now in the ICU. She is slightly sedated but still oriented x3 and able to give a history. She has reproducible chest wall pain but no definite anginal symptoms. There is no arrhythmia seen on the monitor. So far cardiac enzymes initially were normal but subsequently did go up. Her EKG remains normal. She denies shortness of breath. There is no PND orthopnea or leg edema. There is no prior history of PR or heart failure. There is no prior history of cardiac arrhythmia. PAST MEDICAL HISTORY: Hypertension. Chronic pain syndrome. Anemia. History of morbid obesity which persists in spite of gastric bypass/bariatric surgery. History of chronic kidney disease in the past. At present the patient's GFR is normal. There is no history of asthma or COPD. No history of diabetes mellitus or thyroid disease. No history of TIA or CVA. No history of sleep apnea. She also has significant generalized arthritis causing chronic pain syndrome. PAST SURGICAL HISTORY: section x2. Bilateral tubal ligation. She has had bilateral total knee replacement. Cholecystectomy. Bariatric surgery. Breast tumor removed history of scopic D&C in 2016. Colonoscopy 2015 she had hysterectomy and D&C in 2019. ALLERGIES: The patient is allergic to codeine doxycycline at Romycin base, penicillins and oxycodone SOCIAL HISTORY: The patient does not smoke. There is no history of EtOH abuse. FAMILY HISTORY: Is positive for premature coronary artery disease. Hypertension arthritis and dementia. Father has dementia and prostate cancer. There is also signal family history of breast cancer. RESUSCITATION STATUS: The patient is a full code. Her is her surrogate healthcare decision maker. REVIEW OF SYSTEMS: CONSTITUTIONAL: Denies any fever chills or rigors. Complains of generalized fatigue and generalized weakness. HEAD: Denies headaches or head injury. EYES: No history of amblyopia diplopia. No history of amaurosis fugax. EARS: No history of hearing loss. No tinnitus. No vertigo. NOSE: No history of hayfever. No history of nose bleeds. No history of nasal polyposis. MOUTH: No history of altered taste sensation. No ulcers in the mouth. No bleeding from the gums. THROAT: No history of odynophagia or dysphagia. No history of recurrent sore throats. SKIN: No history of pruritus. No history of allergic discoloration of the skin. No easy bruisability. LUNGS: No history of asthma COPD. No history of pulmonary embolism. No history of sleep apnea. No history of pleuritic chest pain. No history of symptoms of upper or lower respiratory tract infection. HEART: History of hypertension. Well controlled as per patient. No history of prior episodes of PR or angina. No prior history of cardiac arrhythmia. Patient this admission had bradycardia and pulseless electrical activity needing CPR. No history of heart failure. No history of prior syncope. ENDOCRINE: No history of diabetes mellitus. Notes of thyroid disease. No history of polydipsia polyuria. No severe to cold intolerance. RENAL: History of chronic kidney disease in the past. At present patient GFR is normal. No symptoms of hematuria pyuria dysuria. No symptoms of UTI. MUSCULOSKELETAL: History of chronic generalized arthritis most likely osteoarthritis. No history of collagen vascular disease. Patient is chronic pain syndrome. TALENT ANALYST: No history of TIA CVA. No history of headaches migraines or seizures. No history of gait imbalance. PSYCHIATRIC: No history of anxiety or depression no history of suicidal ideation. GI: No history of GI bleed. No history of peptic ulcer disease. No history of fatty food intolerance. No history of jaundice. No stiff hepatitis. No history of altered bowel movements. METABOLIC: Denies history of hyperlipidemia. No history of gout. History of obesity present. This is in spite of her bariatric surgery. Vascular: No history of calf or buttock claudication. No history of DVT. Hematological: History of anemia present due to excessive uterine bleeding. No history of clotting disorders. No history of blood dyscrasias. DIGITAL COLOR PRESS OPERATOR: History of dysfunctional uterine bleeding. This persists in spite of D&C and hence the patient was for hysterectomy. Current Medications Generic Name Dose Route Start Last Admin Trade Name Ramandeep PRN Reason Stop Dose Admin Acetaminophen 650 mg 05/22/19 09:07 05/22/19 10:13 Tylenol 325 Mg Tablet PO 06/21/19 09:06 650 mg Q4HP PRN Administration FOR HEADACHE Calcium Carbonate 500 mg 05/22/19 17:00 05/22/19 22:16 Tums Chewable 500 Mg Tab.Chew PO 06/21/19 16:59 500 mg MEALSHS KANDI Administration Cyanocobalamin 1,000 mcg 05/22/19 16:15 Vitamin B-12 Inj 1000 Mcg/1 Ml Vial IM 06/21/19 16:14 .MONTHLY KANDI Enoxaparin Sodium 40 mg 05/22/19 10:00 05/22/19 10:16 Lovenox Inj 40 Mg/0.4 Ml Disp.Syrin SUBCUT 06/21/19 09:59 40 mg DAILY KANDI Administration Ergocalciferol 50,000 unit 05/29/19 10:00 Drisdol 50,000 Unit (1.25mg) Capsule PO 06/28/19 09:59 WE@1000 KANDI Fluoxetine HCl 20 mg 05/22/19 10:00 05/22/19 17:43 Prozac 20 Mg Capsule PO 06/21/19 09:59 20 mg BID KANDI Administration Sodium Chloride 1,000 mls @ 150 mls/hr 05/22/19 09:18 05/22/19 10:18 Nacl 0.9% 1000 Ml Iv Soln IV 06/21/19 09:17 150 mls/hr CONTINUOUS PRN Administration THIS MED IS NOT "PRN" Morphine Sulfate 4 mg 05/22/19 09:18 05/23/19 00:14 Morphine 10 Mg/Ml Inj IV 05/29/19 09:17 4 mg Q4HP PRN Administration FOR PAIN Ondansetron HCl 8 mg 05/22/19 09:07 05/22/19 16:46 Zofran Inj/Pf 4 Mg/2 Ml Sdv IV 06/21/19 09:06 8 mg Q4HP PRN Administration FOR NAUSEA/VOMITING Patient Own Medication 600 mg 05/22/19 10:00 Gabapentin Enacarbil [Horizant] PO 06/21/19 09:59 BID KANDI Ropinirole HCl 0.5 mg 05/22/19 10:15 05/22/19 11:20 Requip 1 Mg Tablet PO 06/21/19 10:14 Not Given DAILY KANDI Sodium Chloride 2.5 ml 05/22/19 14:00 05/22/19 22:09 Saline Flush 2.5 Ml Monoject Prefil Syrin IV 06/21/19 13:59 Not Given Q8 KANDI Tizanidine HCl 4 mg 05/22/19 11:00 05/22/19 11:22 Zanaflex 4 Mg Tablet PO 06/21/19 10:59 Not Given DAILY KANDI Tramadol HCl 50 mg 05/22/19 16:04 05/22/19 16:44 Ultram 50 Mg Tablet PO 05/29/19 16:03 50 mg DAILYP PRN Administration FOR PAIN Trazodone HCl 150 mg 05/22/19 10:05 05/22/19 22:16 Desyrel 50 Mg Tablet PO 06/21/19 10:04 150 mg HSP PRN Administration SLEEP OR INSOMNIA Discontinued Medications Generic Name Dose Route Start Last Admin Trade Name Freq PRN Reason Stop Dose Admin Albuterol Confirm 05/22/19 07:51 Ventolin Hfa 8 Gm Mdi Administered 05/22/19 07:52 Dose 60 puff IH .STK-MED ONE Bupivacaine HCl Confirm 05/22/19 07:02 05/22/19 07:38 Sensorcaine-Mpf 0.25% Inj 30 Ml Sdv Administered 05/22/19 07:03 10 ml Dose Administration 30 ml .ROUTE .STK-MED ONE Calcium Carbonate 500 mg 05/22/19 16:52 05/22/19 17:43 Tums Chewable 500 Mg Tab.Chew PO 05/22/19 16:53 500 mg NOW ONE Administration Epinephrine HCl Confirm 05/22/19 15:10 Epinephrine Inj 1 Mg/10 Ml Disp.Syrin Administered 05/22/19 15:11 Dose 1 mg .ROUTE .STK-MED ONE Fentanyl Citrate Confirm 05/22/19 06:59 Sublimaze Inj/Pf 100 Mcg/2 Ml Ampule Administered 05/22/19 07:00 Dose 100 mcg .ROUTE .STK-MED ONE Hydromorphone HCl Confirm 05/22/19 06:59 Dilaudid Inj/Pf 2 Mg/Ml Ampule Administered 05/22/19 07:00 Dose 2 mg .ROUTE .STK-MED ONE Cefazolin Sodium/Dextrose Confirm 05/22/19 05:18 05/22/19 09:58 Ancef Rtu 1 Gm/D5w 50 Ml Premix Bag Administered 05/22/19 05:19 Not Given Dose 1 gm in 50 mls @ ud IV .STK-MED ONE Cefazolin Sodium/Dextrose Confirm 05/22/19 07:07 05/22/19 09:58 Ancef Rtu 1 Gm/D5w 50 Ml Premix Bag Administered 05/22/19 07:08 Not Given Dose 1 gm in 50 mls @ ud IV .STK-MED ONE Sodium Chloride 1,000 mls @ 999 mls/hr 05/22/19 09:07 05/22/19 09:00 Nacl 0.9% 1000 Ml Iv Soln IV 05/22/19 10:07 999 mls/hr BOLUS ONE Administration Calcium Gluconate 1 gm in 50 mls @ 50 mls/hr 05/22/19 09:45 05/22/19 11:21 Calcium Gluconate Rtu 1 Gm/50 Ml IV 05/22/19 11:44 50 mls/hr Q1H KANDI Administration Midazolam HCl Confirm 05/22/19 06:59 Versed 2 Mg/2 Ml Inj Administered 05/22/19 07:00 Dose 2 mg .ROUTE .STK-MED ONE Midazolam HCl Confirm 05/22/19 07:05 05/22/19 07:12 Versed 2 Mg/2 Ml Inj Administered 05/22/19 07:06 1 mg Dose Administration 2 mg .ROUTE .STK-MED ONE Midazolam HCl 1 mg 05/22/19 07:15 05/22/19 09:58 Versed 2 Mg/2 Ml Inj IV 05/22/19 07:16 Not Given NOW ONE Naloxone HCl Confirm 05/22/19 15:13 Narcan Inj/Pf 0.4 Mg/1 Ml Sdv Administered 05/22/19 15:14 Dose 0.4 mg .ROUTE .STK-MED ONE Propofol Confirm 05/22/19 07:00 Diprivan Inj 200 Mg/20 Ml Vial Administered 05/22/19 07:01 Dose 200 mg IV .STK-MED ONE Sugammadex Sodium Confirm 05/22/19 07:49 Bridion 200 Mg/2 Ml Sdv Administered 05/22/19 07:50 Dose 200 mg IV .STK-MED ONE Sugammadex Sodium Confirm 05/22/19 07:51 Bridion 200 Mg/2 Ml Sdv Administered 05/22/19 07:52 Dose 200 mg IV .STK-MED ONE Tramadol HCl 50 mg 05/22/19 16:03 Ultram 50 Mg Tablet PO 05/29/19 16:02 Q4HP PRN FOR BACK PAIN PHYSICAL EXAMINATION: The patient appears to be morbidly obese. At present is no acute distress except for pain at the site of the skin incision in the abdomen. Selected Entries 05/22/19 Patient is afebrile 17:27 Heart Rate ( 97 Monitors) Respiratory 19 Rate Blood Pressure 129/91 H Blood Pressure 103 Mean O2 Sat by Pulse 93 Oximetry Room air HEAD: Is atraumatic normocephalic. EYES: Pupils are equal round regular reactive to light accommodation extraocular movements are normal. There is no conjunctival pallor there is no scleral icterus. EARS: External auditory canals are clear. Tympanic membranes are intact. NOSE: There is no deviated nasal septum. There is no inflammation nasal mucous membrane. MOUTH: Mucous membranes of mouth are moist. Tongue is moist there is no ulcers. There is no bleeding from the gums. THROAT: There is no redness of the oropharynx there is no exudates. SKIN: There is no skin rashes. There is no petechia or ecchymosis. There is no skin lesions. NECK: Is supple. There is no JVD. Carotids are equal there is no bruit. There is no lymphadenopathy. There is no goiter. There is no accessory muscles of respiration use. Trachea central. LUNGS: Is clear to auscultation without any rhonchi rales or wheezing. HEART: S1-S2 is heard. There is no S3 gallop. There is no S4 gallop. There is systolic murmur left sternal border and the apex without radiation. There is no rub. ABDOMEN: Is soft. There is mild discomfort at the site of surgery. Bowel sounds are well heard. There is no hepatosplenomegaly. EXTREMITIES femorals are deep. Femorals without any bruits. Femorals are well felt. Leg pulses are well felt. There is no pedal edema. There is no DVT or cellulitis. There is no calf tenderness. There is no cyanosis or clubbing. TALENT ANALYST: The patient is conscious awake alert oriented x3 with no focal deficits. PSYCHIATRIC: The patient judgment insight are intact her affect is normal. ECHOCARDIOGRAM:(05/22/19): The left ventricle is normal in size. There is normal left ventricular wall thickness. LV EF is 55% Left ventricular systolic function is low normal. Doppler measurements suggest impaired left ventricular relaxation, which is associated with grade I/IV or mild diastolic dysfunction The left ventricular wall motion is normal. There is no thrombus. Cannot comment on ASD ,VSD , or PFO. The right ventricle is normal in size and function. The right atrium is normal. The left atrial size is normal. There is no evidence of mitral valve prolapse. There is no vegetation seen on the mitral valve. There is no mitral valve stenosis. There is a trace amount of mitral regurgitation There is no aortic valvular vegetation. There is no aortic valve stenosis There is no LVOT obstruction. No aortic regurgitation is present. There is no tricuspid stenosis. There is a trace amount of tricuspid regurgitation Upper normal RVSP to Mild pulmonary hypertension.RVSP is 28 to 33 mm of Hg , with RA mean of 5 to 10. There is no pulmonic valvular stenosis. There is no pulmonic valvular regurgitation. The aortic root is normal size. The inferior vena cava appeared normal and decreased > 50% with respiration (RAP 5-10 mmHg) There is no pericardial effusion. Labs- Entire Visit 05/15/19 05/15/19 05/15/19 09:26 09:26 09:26 WBC 6.3 RBC 4.83 Hgb 14.5 Hct 42.7 MCV 88 MCH 30.0 MCHC 34.0 RDW 14.6 H Plt Count 225 Sodium 138.1 Potassium 4.4 Chloride 104 Carbon Dioxide 28 Anion Gap 6 BUN 14 Creatinine 0.74 Est GFR ( Amer) > 60 Est GFR (MDRD) Non-Af > 60 Glucose 87 Calcium 8.6 Magnesium Total Bilirubin 0.4 Direct Bilirubin 0.0 Neonat Total Bilirubin Not Reportable Neonat Direct Bilirubin Not Reportable Neonat Indirect Bili Not Reportable AST 36 ALT 55 H Alkaline Phosphatase 106 Creatine Kinase CK-MB (CK-2) Troponin I Total Protein 6.9 Albumin 4.3 Urine Color YELLOW Urine Appearance SLIGHTLY-CLOUDY Urine pH 5.0 Ur Specific [place] 1.028 Urine Protein NEGATIVE Urine Glucose (UA) NEGATIVE Urine Ketones NEGATIVE Urine Blood NEGATIVE Urine Nitrite NEGATIVE Urine Bilirubin NEGATIVE Urine Urobilinogen NEGATIVE Ur Leukocyte Esterase NEGATIVE Ur Squamous Epith Cells FEW Urine Bacteria TRACE Urine Mucus 4+ Urine Ascorbic Acid NEGATIVE Urine HCG, Qual NEGATIVE Blood Type Antibody Screen 05/21/19 05/22/19 05/22/19 08:45 05:20 09:15 WBC RBC Hgb Hct MCV MCH MCHC RDW Plt Count Sodium Potassium Chloride Carbon Dioxide Anion Gap BUN Creatinine Est GFR ( Amer) Est GFR (MDRD) Non-Af Glucose Calcium Magnesium Total Bilirubin Direct Bilirubin Neonat Total Bilirubin Neonat Direct Bilirubin Neonat Indirect Bili AST ALT Alkaline Phosphatase Creatine Kinase 54 CK-MB (CK-2) Troponin I Total Protein Albumin Urine Color Urine Appearance Urine pH Ur Specific [place] Urine Protein Urine Glucose (UA) Urine Ketones Urine Blood Urine Nitrite Urine Bilirubin Urine Urobilinogen Ur Leukocyte Esterase Ur Squamous Epith Cells Urine Bacteria Urine Mucus Urine Ascorbic Acid Urine HCG, Qual NEGATIVE Blood Type A POSITIVE Antibody Screen NEGATIVE 05/22/19 05/22/19 05/22/19 09:15 09:15 09:26 WBC RBC Hgb Hct MCV MCH MCHC RDW Plt Count Sodium Potassium Chloride Carbon Dioxide Anion Gap BUN Creatinine Est GFR ( Amer) Est GFR (MDRD) Non-Af Glucose Calcium Magnesium 2.1 Total Bilirubin Direct Bilirubin Neonat Total Bilirubin Neonat Direct Bilirubin Neonat Indirect Bili AST ALT Alkaline Phosphatase Creatine Kinase CK-MB (CK-2) 0.77 Troponin I 0.027 Total Protein Albumin Urine Color Urine Appearance Urine pH Ur Specific [place] Urine Protein Urine Glucose (UA) Urine Ketones Urine Blood Urine Nitrite Urine Bilirubin Urine Urobilinogen Ur Leukocyte Esterase Ur Squamous Epith Cells Urine Bacteria Urine Mucus Urine Ascorbic Acid Urine HCG, Qual Blood Type A POSITIVE Antibody Screen NEGATIVE 05/22/19 14:35 WBC RBC Hgb Hct MCV MCH MCHC RDW Plt Count Sodium Potassium Chloride Carbon Dioxide Anion Gap BUN Creatinine Est GFR ( Amer) Est GFR (MDRD) Non-Af Glucose Calcium Magnesium Total Bilirubin Direct Bilirubin Neonat Total Bilirubin Neonat Direct Bilirubin Neonat Indirect Bili AST ALT Alkaline Phosphatase Creatine Kinase CK-MB (CK-2) Troponin I 0.470 Total Protein Albumin Urine Color Urine Appearance Urine pH Ur Specific [place] Urine Protein Urine Glucose (UA) Urine Ketones Urine Blood Urine Nitrite Urine Bilirubin Urine Urobilinogen Ur Leukocyte Esterase Ur Squamous Epith Cells Urine Bacteria Urine Mucus Urine Ascorbic Acid Urine HCG, Qual Blood Type Antibody Screen Chest X-Ray 05/15/19 10:08 IMPRESSION: NO SIGNIFICANT RADIOGRAPHIC FINDING IN THE CHEST. Chest X-Ray 05/22/19 00:00 IMPRESSION: Mild perihilar and right upper lobe predominant interstitial opacities possibly edema or infectious/inflammatory process. Left subclavian approach central venous catheter tip at right atrium. No pneumothorax. No endotracheal tube tip visualized. IMPRESSION/RECOMMENDATION: 1. S/p CPR for bradycardia and pulseless ventricular ectopic activity: Patient at present stable with no EKG changes. 2. Elevated troponin I. Differential diagnosis non-ST elevation PR versus secondary to troponin leak secondary to CPR. We will trend the patient's troponin. Note the patient has no chest pain or discomfort. There are no EKG changes. Will trend the troponin and once her troponin is trending down we will schedule the patient for IV Lexiscan Cardiolite stress test. This is if the patient does not develop evolutionary changes of ischemia on her EKG. 3. Hypertension: Well-controlled 4. History of chronic kidney disease stage III: At present the patient's GFR is normal and greater than 60. We will discussed with Dr. Tommy Desai, the district wire chief. The patient states that she has seen Dr. Desai in the past. But has not seen him in some time. 5. History of anemia secondary to excessive uterine bleeding. Patient for hysterectomy. 6.. Chronic pain syndrome. Cardiac status is stable. Echo findings discussed with the patient and patient's . Will treat as mentioned earlier continue to observe the patient. We will get serial EKGs and troponin levels. Once the troponin starts trending down, since the patient has no clinical angina, and no EKG changes, we will schedule the patient for IV Lexiscan cardiac stress test. If the stress test is negative for PR or ischemia, then would recommend giving the patient preoperative subcutaneous atropine to combat any vasovagal reactions. Due to all of these factors medical decision making is of high complexity. If the patient develops EKG changes then would recommend that the patient have cardiac catheterization and possibly EP studies. Will repeat troponin I and EKG in the a.m. Medical regimen and management plan discussed with dull coat mill operator. 60 minutes spent on the patient with more than 50% of time spent in direct patient care. Will follow.
--- NOTE | 2019-05-22 20:57 | XCELERA REPORT ---
[address] [address] Transthoracic Echocardiogram Report Name: MARY CROCKER Age: 48 yrs Gender: Female : 1970 Patient Status: Inpatient Patient Location: ICU^607^A Study Date: 05/22/2019 02:07 PM Height: 58 in Weight: 192 lb BSA: 1.8 m2 Procedure: A two-dimensional transthoracic echocardiogram with color flow and Doppler was performed. Study Quality: Fair. Reason For Study: Cardiac arrest / Murmur History: Cardiac arrest / Murmur. Ordering Physician: RADHA WILKINS Performed By: Michelle Castillo Interpretation Summary The left ventricle is normal in size. There is normal left ventricular wall thickness. LV EF is 55% Left ventricular systolic function is low normal. Doppler measurements suggest impaired left ventricular relaxation, which is associated with grade I/IV or mild diastolic dysfunction The left ventricular wall motion is normal. There is no thrombus. Cannot comment on ASD ,VSD , or PFO. The right ventricle is normal in size and function. The right atrium is normal. The left atrial size is normal. There is no evidence of mitral valve prolapse. There is no vegetation seen on the mitral valve. There is no mitral valve stenosis. There is a trace amount of mitral regurgitation There is no aortic valvular vegetation. There is no aortic valve stenosis There is no LVOT obstruction. No aortic regurgitation is present. There is no tricuspid stenosis. There is a trace amount of tricuspid regurgitation Upper normal RVSP to Mild pulmonary hypertension.RVSP is 28 to 33 mm of Hg , with RA mean of 5 to 10. There is no pulmonic valvular stenosis. There is no pulmonic valvular regurgitation. The aortic root is normal size. The inferior vena cava appeared normal and decreased > 50% with respiration (RAP 5-10 mmHg) There is no pericardial effusion. MMode/2D Measurements & Calculations RVDd: 2.7 cm LVIDd: 5.5 cm FS: 28.6 % Ao root diam: 2.7 cm IVSd: 0.83 cm LVIDs: 3.9 cm EDV(Teich): 148.5 ml Ao root area: 5.9 cm2 LVPWd: 0.77 cm ESV(Teich): 67.5 ml LA dimension: 3.5 cm EF(Teich): 54.5 % Doppler Measurements & Calculations MV E max tamera: MV P1/2t max tamera: Ao V2 max: LV V1 max P.3 cm/sec 84.3 cm/sec 124.9 cm/sec 3.7 mmHg MV A max tamera: MV P1/2t: 58.5 msec Ao max P.2 mmHg LV V1 max: 93.2 cm/sec MVA(P1/2t): 3.8 cm2 95.7 cm/sec MV E/A: 0.90 MV dec slope: 422.5 cm/sec2 MV dec time: 0.20 sec PA V2 max: TR max tamera: MV P1/2t-pr_phl: 66.6 cm/sec 241.6 cm/sec 58.5 msec PA max PG: TR max P.4 mmHg 1.8 mmHg Left Ventricle The left ventricle is normal in size. There is normal left ventricular wall thickness. LV EF is 55%. Left ventricular systolic function is low normal. Doppler measurements suggest impaired left ventricular relaxation, which is associated with grade I/IV or mild diastolic dysfunction. The left ventricular wall motion is normal. There is no thrombus. Cannot comment on ASD ,VSD , or PFO. Right Ventricle The right ventricle is normal in size and function. Atria The right atrium is normal. The left atrial size is normal. Mitral Valve There is no evidence of mitral valve prolapse. There is no vegetation seen on the mitral valve. There is no mitral valve stenosis. There is a trace amount of mitral regurgitation. Aortic Valve There is no aortic valvular vegetation. There is no aortic valve stenosis. There is no LVOT obstruction. No aortic regurgitation is present. Tricuspid Valve There is no tricuspid stenosis. There is a trace amount of tricuspid regurgitation. Upper normal RVSP to Mild pulmonary hypertension.RVSP is 28 to 33 mm of Hg , with RA mean of 5 to 10. Pulmonic Valve There is no pulmonic valvular stenosis. There is no pulmonic valvular regurgitation. Great Vessels The aortic root is normal size. The inferior vena cava appeared normal and decreased > 50% with respiration (RAP 5-10 mmHg). Effusions There is no pericardial effusion. : RADHA WILKINS Lakshmi
[2019-05-23] MEDS: MORPHINE SULFATE 10 MG/ML INJ IV PRN ×3 (00:14→15:39)
[2019-05-23] MEDS: NORMAL SALINE 1000 ML 1,000 ML IV PRN ×3 (01:05→15:42)
[2019-05-23] MEDS: CALCIUM CARBONATE 500 MG TAB.CHEW PO SCH ×2 (07:57→11:46)
--- NOTE | 2019-05-23 10:29 | Progress Note ---
Provider Note Provider Note: CARDIOLOGY PROGRESS NOTE and transfer summary by Dr. Radha Wu on 05/23/2019. SUBJECTIVE: The patient has reproducible chest wall pain but no clear-cut anginal symptoms. There is no arrhythmia seen on the monitor. There is no shortness of breath. There is no PND orthopnea. The patient's troponin is juli nding down and is 0.270. But the patient has new EKG changes in the anterior leads and also in the basal lateral leads. The patient does have multiple CAD risk factors namely age, hypertension, and strong family history of premature coronary artery disease. There is no leg edema. There is no arrhythmia seen on the monitor. There is no evidence of ongoing uterine bleeding at present. Review of the monitor shows that there is no bradycardia or tachyarrhythmia of either atrial or ventricular origin. Medications on transfer: Current Medications Generic Name Dose Route Start Last Admin Trade Name Freq PRN Reason Stop Dose Admin Acetaminophen 650 mg 05/22/19 09:07 05/22/19 10:13 Tylenol 325 Mg Tablet PO 06/21/19 09:06 650 mg Q4HP PRN Administration FOR HEADACHE Calcium Carbonate 500 mg 05/22/19 17:00 05/23/19 07:57 Tums Chewable 500 Mg Tab.Chew PO 06/21/19 16:59 500 mg MEALSHS KANDI Administration Cyanocobalamin 1,000 mcg 05/22/19 16:15 Vitamin B-12 Inj 1000 Mcg/1 Ml Vial IM 06/21/19 16:14 .MONTHLY KANDI Enoxaparin Sodium 40 mg 05/22/19 10:00 05/22/19 10:16 Lovenox Inj 40 Mg/0.4 Ml Disp.Syrin SUBCUT 06/21/19 09:59 40 mg DAILY KANDI Administration Ergocalciferol 50,000 unit 05/29/19 10:00 Drisdol 50,000 Unit (1.25mg) Capsule PO 06/28/19 09:59 WE@1000 KANDI Fluoxetine HCl 20 mg 05/22/19 10:00 05/22/19 17:43 Prozac 20 Mg Capsule PO 06/21/19 09:59 20 mg BID KANDI Administration Sodium Chloride 1,000 mls @ 150 mls/hr 05/22/19 09:18 05/23/19 07:52 Nacl 0.9% 1000 Ml Iv Soln IV 06/21/19 09:17 150 mls/hr CONTINUOUS PRN Administration THIS MED IS NOT "PRN" Morphine Sulfate 4 mg 05/22/19 09:18 05/23/19 07:57 Morphine 10 Mg/Ml Inj IV 05/29/19 09:17 4 mg Q4HP PRN Administration FOR PAIN Ondansetron HCl 8 mg 05/22/19 09:07 05/22/19 16:46 Zofran Inj/Pf 4 Mg/2 Ml Sdv IV 06/21/19 09:06 8 mg Q4HP PRN Administration FOR NAUSEA/VOMITING Ropinirole HCl 0.5 mg 05/22/19 10:15 05/22/19 11:20 Requip 1 Mg Tablet PO 06/21/19 10:14 Not Given DAILY KANDI Sodium Chloride 2.5 ml 05/22/19 14:00 05/23/19 05:19 Saline Flush 2.5 Ml Monoject Prefil Syrin IV 06/21/19 13:59 Not Given Q8 KANDI Tizanidine HCl 4 mg 05/22/19 11:00 05/22/19 11:22 Zanaflex 4 Mg Tablet PO 06/21/19 10:59 Not Given DAILY KANDI Tramadol HCl 50 mg 05/22/19 16:04 05/22/19 16:44 Ultram 50 Mg Tablet PO 05/29/19 16:03 50 mg DAILYP PRN Administration FOR PAIN Trazodone HCl 150 mg 05/22/19 10:05 05/22/19 22:16 Desyrel 50 Mg Tablet PO 06/21/19 10:04 150 mg HSP PRN Administration SLEEP OR INSOMNIA Discontinued Medications Generic Name Dose Route Start Last Admin Trade Name Freq PRN Reason Stop Dose Admin Albuterol Confirm 05/22/19 07:51 Ventolin Hfa 8 Gm Mdi Administered 05/22/19 07:52 Dose 60 puff IH .STK-MED ONE Bupivacaine HCl Confirm 05/22/19 07:02 05/22/19 07:38 Sensorcaine-Mpf 0.25% Inj 30 Ml Sdv Administered 05/22/19 07:03 10 ml Dose Administration 30 ml .ROUTE .STK-MED ONE Calcium Carbonate 500 mg 05/22/19 16:52 05/22/19 17:43 Tums Chewable 500 Mg Tab.Chew PO 05/22/19 16:53 500 mg NOW ONE Administration Epinephrine HCl Confirm 05/22/19 15:10 Epinephrine Inj 1 Mg/10 Ml Disp.Syrin Administered 05/22/19 15:11 Dose 1 mg .ROUTE .STK-MED ONE Fentanyl Citrate Confirm 05/22/19 06:59 Sublimaze Inj/Pf 100 Mcg/2 Ml Ampule Administered 05/22/19 07:00 Dose 100 mcg .ROUTE .STK-MED ONE Hydromorphone HCl Confirm 05/22/19 06:59 Dilaudid Inj/Pf 2 Mg/Ml Ampule Administered 05/22/19 07:00 Dose 2 mg .ROUTE .STK-MED ONE Cefazolin Sodium/Dextrose Confirm 05/22/19 05:18 05/22/19 09:58 Ancef Rtu 1 Gm/D5w 50 Ml Premix Bag Administered 05/22/19 05:19 Not Given Dose 1 gm in 50 mls @ ud IV .STK-MED ONE Cefazolin Sodium/Dextrose Confirm 05/22/19 07:07 05/22/19 09:58 Ancef Rtu 1 Gm/D5w 50 Ml Premix Bag Administered 05/22/19 07:08 Not Given Dose 1 gm in 50 mls @ ud IV .STK-MED ONE Sodium Chloride 1,000 mls @ 999 mls/hr 05/22/19 09:07 05/22/19 09:00 Nacl 0.9% 1000 Ml Iv Soln IV 05/22/19 10:07 999 mls/hr BOLUS ONE Administration Calcium Gluconate 1 gm in 50 mls @ 50 mls/hr 05/22/19 09:45 05/22/19 11:21 Calcium Gluconate Rtu 1 Gm/50 Ml IV 05/22/19 11:44 50 mls/hr Q1H KANDI Administration Midazolam HCl Confirm 05/22/19 06:59 Versed 2 Mg/2 Ml Inj Administered 05/22/19 07:00 Dose 2 mg .ROUTE .STK-MED ONE Midazolam HCl Confirm 05/22/19 07:05 05/22/19 07:12 Versed 2 Mg/2 Ml Inj Administered 05/22/19 07:06 1 mg Dose Administration 2 mg .ROUTE .STK-MED ONE Midazolam HCl 1 mg 05/22/19 07:15 05/22/19 09:58 Versed 2 Mg/2 Ml Inj IV 05/22/19 07:16 Not Given NOW ONE Naloxone HCl Confirm 05/22/19 15:13 Narcan Inj/Pf 0.4 Mg/1 Ml Sdv Administered 05/22/19 15:14 Dose 0.4 mg .ROUTE .STK-MED ONE Patient Own Medication 600 mg 05/22/19 10:00 Gabapentin Enacarbil [Horizant] PO 06/21/19 09:59 BID KANDI Propofol Confirm 05/22/19 07:00 Diprivan Inj 200 Mg/20 Ml Vial Administered 05/22/19 07:01 Dose 200 mg IV .STK-MED ONE Sugammadex Sodium Confirm 05/22/19 07:49 Bridion 200 Mg/2 Ml Sdv Administered 05/22/19 07:50 Dose 200 mg IV .STK-MED ONE Sugammadex Sodium Confirm 05/22/19 07:51 Bridion 200 Mg/2 Ml Sdv Administered 05/22/19 07:52 Dose 200 mg IV .STK-MED ONE Tramadol HCl 50 mg 05/22/19 16:03 Ultram 50 Mg Tablet PO 05/29/19 16:02 Q4HP PRN FOR BACK PAIN PHYSICAL EXAMINATION: The patient is morbidly obese. In no acute distress. Selected Entries 05/23/19 Patient is afebrile 06:29 Heart Rate ( 71 Monitors) Respiratory 13 Rate Blood Pressure 135/86 H Blood Pressure 102 Mean O2 Sat by Pulse 99 Oximetry Room air HEAD: Is atraumatic normocephalic. EYES: Pupils are equal round regular reactive to light accommodation extraocular movements are normal. There is no conjunctival pallor there is no scleral icterus. EARS: External auditory canals are clear. Tympanic membranes are intact. NOSE: There is no deviated nasal septum. There is no inflammation nasal mucous membrane. MOUTH: Mucous membranes of mouth are moist. Tongue is moist there is no ulcers. There is no bleeding from the gums. THROAT: There is no redness of the oropharynx there is no exudates. SKIN: There is no skin rashes. There is no petechia or ecchymosis. There is no skin lesions. NECK: Is supple. There is no JVD. Carotids are equal there is no bruit. There is no lymphadenopathy. There is no goiter. There is no accessory muscles of respiration use. Trachea central. LUNGS: Is clear to auscultation without any rhonchi rales or wheezing. HEART: S1-S2 is heard. There is no S3 gallop. There is no S4 gallop. There is systolic murmur left sternal border and the apex without radiation. There is no rub. ABDOMEN: Is soft. There is mild discomfort at the site of surgery. Bowel sounds are well heard. There is no hepatosplenomegaly. EXTREMITIES femorals are deep. Femorals without any bruits. Femorals are well felt. Leg pulses are well felt. There is no pedal edema. There is no DVT or cellulitis. There is no calf tenderness. There is no cyanosis or clubbing. CROSSBAR SWITCH ADJUSTER: The patient is conscious awake alert oriented x3 with no focal deficits. PSYCHIATRIC: The patient judgment insight are intact her affect is normal. EKG: Sinus rhythm. Borderline prolonged QT intervals. Anterior and basal lateral T inversion. This is new suggestive of ischemia Labs- Entire Visit 05/15/19 05/15/19 05/15/19 09:26 09:26 09:26 WBC 6.3 RBC 4.83 Hgb 14.5 Hct 42.7 MCV 88 MCH 30.0 MCHC 34.0 RDW 14.6 H Plt Count 225 Sodium 138.1 Potassium 4.4 Chloride 104 Carbon Dioxide 28 Anion Gap 6 BUN 14 Creatinine 0.74 Est GFR ( Amer) > 60 Est GFR (MDRD) Non-Af > 60 Glucose 87 Calcium 8.6 Magnesium Total Bilirubin 0.4 Direct Bilirubin 0.0 Neonat Total Bilirubin Not Reportable Neonat Direct Bilirubin Not Reportable Neonat Indirect Bili Not Reportable AST 36 ALT 55 H Alkaline Phosphatase 106 Creatine Kinase CK-MB (CK-2) Troponin I Total Protein 6.9 Albumin 4.3 Urine Color YELLOW Urine Appearance SLIGHTLY-CLOUDY Urine pH 5.0 Ur Specific [place] 1.028 Urine Protein NEGATIVE Urine Glucose (UA) NEGATIVE Urine Ketones NEGATIVE Urine Blood NEGATIVE Urine Nitrite NEGATIVE Urine Bilirubin NEGATIVE Urine Urobilinogen NEGATIVE Ur Leukocyte Esterase NEGATIVE Ur Squamous Epith Cells FEW Urine Bacteria TRACE Urine Mucus 4+ Urine Ascorbic Acid NEGATIVE Urine HCG, Qual NEGATIVE Blood Type Antibody Screen 05/21/19 05/22/19 05/22/19 08:45 05:20 09:15 WBC RBC Hgb Hct MCV MCH MCHC RDW Plt Count Sodium Potassium Chloride Carbon Dioxide Anion Gap BUN Creatinine Est GFR ( Amer) Est GFR (MDRD) Non-Af Glucose Calcium Magnesium Total Bilirubin Direct Bilirubin Neonat Total Bilirubin Neonat Direct Bilirubin Neonat Indirect Bili AST ALT Alkaline Phosphatase Creatine Kinase 54 CK-MB (CK-2) Troponin I Total Protein Albumin Urine Color Urine Appearance Urine pH Ur Specific [place] Urine Protein Urine Glucose (UA) Urine Ketones Urine Blood Urine Nitrite Urine Bilirubin Urine Urobilinogen Ur Leukocyte Esterase Ur Squamous Epith Cells Urine Bacteria Urine Mucus Urine Ascorbic Acid Urine HCG, Qual NEGATIVE Blood Type A POSITIVE Antibody Screen NEGATIVE 05/22/19 05/22/19 05/22/19 09:15 09:15 09:26 WBC RBC Hgb Hct MCV MCH MCHC RDW Plt Count Sodium Potassium Chloride Carbon Dioxide Anion Gap BUN Creatinine Est GFR ( Amer) Est GFR (MDRD) Non-Af Glucose Calcium Magnesium 2.1 Total Bilirubin Direct Bilirubin Neonat Total Bilirubin Neonat Direct Bilirubin Neonat Indirect Bili AST ALT Alkaline Phosphatase Creatine Kinase CK-MB (CK-2) 0.77 Troponin I 0.027 Total Protein Albumin Urine Color Urine Appearance Urine pH Ur Specific [place] Urine Protein Urine Glucose (UA) Urine Ketones Urine Blood Urine Nitrite Urine Bilirubin Urine Urobilinogen Ur Leukocyte Esterase Ur Squamous Epith Cells Urine Bacteria Urine Mucus Urine Ascorbic Acid Urine HCG, Qual Blood Type A POSITIVE Antibody Screen NEGATIVE 05/22/19 05/23/19 14:35 09:00 WBC RBC Hgb Hct MCV MCH MCHC RDW Plt Count Sodium Potassium Chloride Carbon Dioxide Anion Gap BUN Creatinine Est GFR ( Amer) Est GFR (MDRD) Non-Af Glucose Calcium Magnesium Total Bilirubin Direct Bilirubin Neonat Total Bilirubin Neonat Direct Bilirubin Neonat Indirect Bili AST ALT Alkaline Phosphatase Creatine Kinase CK-MB (CK-2) Troponin I 0.470 0.213 Total Protein Albumin Urine Color Urine Appearance Urine pH Ur Specific [place] Urine Protein Urine Glucose (UA) Urine Ketones Urine Blood Urine Nitrite Urine Bilirubin Urine Urobilinogen Ur Leukocyte Esterase Ur Squamous Epith Cells Urine Bacteria Urine Mucus Urine Ascorbic Acid Urine HCG, Qual Blood Type Antibody Screen Chest X-Ray 05/15/19 10:08 IMPRESSION: NO SIGNIFICANT RADIOGRAPHIC FINDING IN THE CHEST. Chest X-Ray 05/22/19 00:00 IMPRESSION: Mild perihilar and right upper lobe predominant interstitial opacities possibly edema or infectious/inflammatory process. Left subclavian approach central venous catheter tip at right atrium. No pneumothorax. No endotracheal tube tip visualized. IMPRESSION/RECOMMENDATION: 1. S/p CPR for bradycardia and pulseless ventricular ectopic activity: Patient at present stable EKG changes. 2. Elevated troponin I. This is trending down, but there are new EKG changes suggestive of anterior and lateral wall ischemia. Hence in view of the patient's renal function being normal. The patient is young age strongly recommend cardiac catheterization. And possibly EP studies if needed. The case was discussed with Dr. Carlos Anglin of [facility] in [place] who was accepted the patient. The patient and the are aware of transfer and they are agreeable. They are aware of the benefits and risks of the transfer. 3. Coronary artery disease: Most likely the patient has underlying coronary artery disease. The patient's risk factors are her age, hypertension, and strong family history of premature coronary artery disease. 5. Hypertension: Well-controlled 6.. History of chronic kidney disease stage III: At present the patient's GFR is normal and greater than 60 7.. History of anemia secondary to excessive uterine bleeding. Patient for hysterectomy. 8... Chronic pain syndrome. Medications reviewed. In view of the patient's history of uterine bleeding, since the patient clinically stable, will not start the patient on full dose anticoagulation. Will not use beta blockers in view of the patient's bradycardia and pulseless electrical activity. Will place the patient on aspirin. The case has been discussed extensively with Dr. Carlos Anglin who is accepted the patient. Medical decision making is of high complexity. 50 minutes spent as patient more than 50% of time spent in direct patient care. This has been discussed with shampoo technician. Will sign off and follow the patient in the office.
[2019-05-23] MEDS ORDERED: ASPIRIN 325 MG TABLET PO ONE (10:44)
--- NOTE | 2019-05-23 11:30 | PDOC TRANSFER SUMMARY ---
General Admission Date/PCP: 05/22/19 08:37 FELICIA BARKLEY MD - Transfer Diagnosis (1) Bradycardia associated with anesthesia Is this a current diagnosis for this admission?: Yes - Transfer Medications Home Medications: Fluoxetine HCl [Prozac 20 mg Capsule] 20 mg PO Q8 11/24/15 Amlodipine Besylate [Norvasc 5 mg Tablet] 5 mg PO DAILY 05/15/19 Oxcarbazepine 600 mg PO Q12 05/15/19 Ropinirole HCl 0.5 mg PO QHS 05/15/19 Tizanidine HCl 4 mg PO QPM 05/15/19 Trazodone HCl 150 mg PO HSP PRN 05/15/19 Cyanocobalamin (Vitamin B-12) [Vitamin B-12 Inj 1000 Mcg/1 ml Vial] 1,000 mcg IM .MONTHLY 05/22/19 Ergocalciferol (Vitamin D2) [Drisdol 50,000 Unit (1.25MG) Capsule] 50,000 unit PO WE@1000 05/22/19 Gabapentin [Neurontin 300 mg Capsule] 900 mg PO QHS 05/22/19 Tramadol HCl [Ultram 50 mg Tablet] 50 mg PO DAILYP PRN 05/22/19 Transfer Medications: Current Medications Acetaminophen (Tylenol 325 Mg Tablet) 650 mg PO Q4HP PRN PRN Reason: FOR HEADACHE Stop: 06/21/19 09:06 Last Admin: 05/22/19 10:13 Dose: 650 mg Documented by: Calcium Carbonate (Tums Chewable 500 Mg Tab.Chew) 500 mg PO MEALSHS [facility] Stop: 06/21/19 16:59 Last Admin: 05/23/19 07:57 Dose: 500 mg Documented by: Cyanocobalamin (Vitamin B-12 Inj 1000 Mcg/1 Ml Vial) 1,000 mcg IM .MONTHLY [facility] Stop: 06/21/19 16:14 Enoxaparin Sodium (Lovenox Inj 40 Mg/0.4 Ml Disp.Syrin) 40 mg SUBCUT DAILY [facility] Stop: 06/21/19 09:59 Last Admin: 05/22/19 10:16 Dose: 40 mg Documented by: Ergocalciferol (Drisdol 50,000 Unit (1.25mg) Capsule) 50,000 unit PO WE@1000 [facility] Stop: 06/28/19 09:59 Fluoxetine HCl (Prozac 20 Mg Capsule) 20 mg PO BID [facility] Stop: 06/21/19 09:59 Last Admin: 05/22/19 17:43 Dose: 20 mg Documented by: Sodium Chloride (Nacl 0.9% 1000 Ml Iv Soln) 1,000 mls @ 150 mls/hr IV CONTINUOUS PRN PRN Reason: THIS MED IS NOT "PRN" Stop: 06/21/19 09:17 Last Admin: 05/23/19 07:52 Dose: 150 mls/hr Documented by: Morphine Sulfate (Morphine 10 Mg/Ml Inj) 4 mg IV Q4HP PRN PRN Reason: FOR PAIN Stop: 05/29/19 09:17 Last Admin: 05/23/19 07:57 Dose: 4 mg Documented by: Ondansetron HCl (Zofran Inj/Pf 4 Mg/2 Ml Sdv) 8 mg IV Q4HP PRN PRN Reason: FOR NAUSEA/VOMITING Stop: 06/21/19 09:06 Last Admin: 05/22/19 16:46 Dose: 8 mg Documented by: Ropinirole HCl (Requip 1 Mg Tablet) 0.5 mg PO DAILY [facility] Stop: 06/21/19 10:14 Last Admin: 05/22/19 11:20 Dose: Not Given Documented by: Sodium Chloride (Saline Flush 2.5 Ml Monoject Prefil Syrin) 2.5 ml IV Q8 [facility] Stop: 06/21/19 13:59 Last Admin: 05/23/19 05:19 Dose: Not Given Documented by: Tizanidine HCl (Zanaflex 4 Mg Tablet) 4 mg PO DAILY [facility] Stop: 06/21/19 10:59 Last Admin: 05/22/19 11:22 Dose: Not Given Documented by: Tramadol HCl (Ultram 50 Mg Tablet) 50 mg PO DAILYP PRN PRN Reason: FOR PAIN Stop: 05/29/19 16:03 Last Admin: 05/22/19 16:44 Dose: 50 mg Documented by: Trazodone HCl (Desyrel 50 Mg Tablet) 150 mg PO HSP PRN PRN Reason: SLEEP OR INSOMNIA Stop: 06/21/19 10:04 Last Admin: 05/22/19 22:16 Dose: 150 mg Documented by: - Allergies Allergies/Adverse Reactions: codeine Allergy (Severe, Verified 05/22/19 05:32) Shortness of Breath doxycycline Allergy (Severe, Verified 05/22/19 05:32) Shortness of Breath erythromycin base Allergy (Severe, Verified 05/22/19 05:32) rash Penicillins Allergy (Severe, Verified 05/22/19 05:32) Hives oxycodone [From Percocet] Adverse Reaction (Severe, Verified 05/22/19 05:32) n and v Hospital Course Hospital Course: This patient is a 48 yo woman brought in through [facility] for an elective hysterectomy for pain and DUB. She has a hx of HTN, depression/anxiety, DVT, asthma, and anesthesia 'complications' meaning slow to wake up. She denies but Dr. Purdy (applied researcher) knows the family and there is a strong family history of CAD. She was uneventfully induced. A skin incision made, but before the peritoneum was opened she had a brief bradycardic arrest. 30 seconds of CPR and one round of epinephrine given. There has been stable VS since. Case aborted and she was watched in the ICU overnight. Extubated in OR. She is somewhat sore in chest where compressions were given. Troponin peaked at .4 and are down trending. She only needs a telemetry bed but will be in the ICU pending transfer. Dr. Purdy has spoken to Dr. Carlos Anglin, cardiology and EP at [facility] where a catheterization and EP study can be done. She will be transferred today. Physical Exam Vital Signs: Temp Pulse Resp BP Pulse Ox 98.0 F 70 13 135/86 H 99 05/23/19 06:00 05/23/19 08:00 05/23/19 06:29 05/23/19 06:29 05/23/19 06:29 Intake & Output 05/22/19 05/23/19 05/24/19 06:59 06:59 06:59 Intake Total 0 2074 1000 Output Total 1885 60 Balance 0 189 940 Weight 87.09 kg 93.5 kg General appearance: PRESENT: no acute distress, well-developed, well-nourished Head exam: PRESENT: atraumatic, normocephalic Eye exam: PRESENT: conjunctiva pink, EOMI, PERRLA. ABSENT: scleral icterus Ear exam: PRESENT: normal external ear exam Mouth exam: PRESENT: moist, tongue midline Respiratory exam: PRESENT: clear to auscultation wilver. ABSENT: rales, rhonchi, wheezes Cardiovascular exam: PRESENT: RRR, other - Soreness in chest related to co mpressions.. ABSENT: diastolic murmur, rubs, systolic murmur Vascular exam: PRESENT: normal capillary refill GI/Abdominal exam: PRESENT: normal bowel sounds, soft, other - Low abdominal incision/laceration sterilly dressed. ABSENT: distended, guarding, mass, organolmegaly, rebound, tenderness Rectal exam: PRESENT: deferred Extremities exam: PRESENT: full ROM. ABSENT: calf tenderness, clubbing, pedal edema Neurological exam: PRESENT: alert, awake, oriented to person, oriented to place, oriented to time, oriented to situation, CN II-XII grossly intact. ABSENT: motor sensory deficit Psychiatric exam: PRESENT: appropriate affect, normal mood. ABSENT: homicidal ideation, suicidal ideation Results Laboratory Results: 05/15/19 09:26 05/15/19 09:26 05/22/19 09:15 Magnesium 2.1 05/22/19 05/22/19 05/22/19 09:15 09:15 14:35 Creatine Kinase 54 CK-MB (CK-2) 0.77 Troponin I 0.027 0.470 05/23/19 09:00 Creatine Kinase CK-MB (CK-2) Troponin I 0.213 EKG Comments: NSR anterior and lateral new mild depressions. Impressions: Chest X-Ray 05/22/19 00:00 IMPRESSION: Mild perihilar and right upper lobe predominant interstitial opacities possibly edema or infectious/inflammatory process. Left subclavian approach central venous catheter tip at right atrium. No pneumothorax. No endotracheal tube tip visualized. Status: Image reviewed by me Plan Discharge Plan: Transfer to [facility] for cath and possible EP study.
[2019-05-23] MEDS: ROPINIROLE HCL 1 MG TABLET PO SCH (11:46)
[2019-05-23] MEDS: TIZANIDINE HCL 4 MG TABLET PO SCH (11:46)
[2019-05-23] MEDS: FLUOXETINE HCL 20 MG CAPSULE PO SCH (11:46)
[2019-05-23] MEDS: ENOXAPARIN SODIUM INJ 40 MG/0.4 ML DISP.SYRIN SUBCUT SCH (11:46)
[2019-05-23 15:38] VITALS: BP 97/59
--- NOTE | 2019-05-23 15:55 | EKG REPORT ---
SEVERITY:- BORDERLINE ECG - SINUS RHYTHM BORDERLINE T ABNORMALITIES, ANT-LAT LEADS BORDERLINE PROLONGED QT INTERVAL : Confirmed by: Radha Wu MD 23-May-2019 15:53:50
--- NOTE | 2019-05-23 15:55 | EKG REPORT ---
SEVERITY:- BORDERLINE ECG - SINUS RHYTHM BORDERLINE T ABNORMALITIES, ANTERIOR LEADS BORDERLINE PROLONGED QT INTERVAL : Confirmed by: Radha Wu MD 23-May-2019 15:53:54
[2019-05-29] MEDS ORDERED: ERGOCALCIFEROL (VITAMIN D2) 50000 UNIT (1.25 MG) CAPSULE PO SCH (10:00)
== END 2019-05-23 16:30 | disposition short-term general hospital (02) | DRG 760 ==
LOC: OROUT 05:10 → ICU 08:37
PROVIDERS: ADMIT Obstetrics & Gynecology Gynecology; ATTEND Obstetrics & Gynecology Gynecology
PROC: 02H633Z Insertion of Infusion Device into Right Atrium, Percutaneous Approach (ICD-10-PCS; principal; 2019-05-22)
PROC: 5A12012 Performance of Cardiac Output, Single, Manual (ICD-10-PCS; 2019-05-22)
DX: N93.8 Other specified abnormal uterine and vaginal bleeding (principal); I97.711 Intraoperative cardiac arrest during other surgery; T88.59XA Other complications of anesthesia, initial encounter; N18.3 Chronic kidney disease, stage 3 (moderate); D50.0 Iron deficiency anemia secondary to blood loss (chronic); Y83.8 Other surgical procedures as the cause of abnormal reaction of the patient, or of later complication, without mention of misadventure at the time of the procedure; F41.8 Other specified anxiety disorders; J45.909 Unspecified asthma, uncomplicated; R00.1 Bradycardia, unspecified; T41.205A Adverse effect of unspecified general anesthetics, initial encounter; Z53.8 Procedure and treatment not carried out for other reasons; G89.4 Chronic pain syndrome; E66.01 Morbid (severe) obesity due to excess calories; M19.90 Unspecified osteoarthritis, unspecified site; Z96.653 Presence of artificial knee joint, bilateral; I12.9 Hypertensive chronic kidney disease with stage 1 through stage 4 chronic kidney disease, or unspecified chronic kidney disease; Z88.6 Allergy status to analgesic agent; Z88.3 Allergy status to other anti-infective agents; Z88.0 Allergy status to penicillin; Z86.718 Personal history of other venous thrombosis and embolism; Z98.84 Bariatric surgery status; Z82.61 Family history of arthritis; Z82.49 Family history of ischemic heart disease and other diseases of the circulatory system; Z68.39 Body mass index [BMI] 39.0-39.9, adult
CPT/HCPCS: 00840; 36415; 71045; 71046; 80053; 81001; 81025; 82550; 82553; 83735; 84484; 85027; 86850; 86900; 86901; 93005; 93010; 93306; 99291; J0610; C1751; J0171; J0330; J0690; J1170; J1650; J2250; J2270; J2310; J2405; J2704; J3010; J3490; J7030

== ENCOUNTER 2019-11-18 08:25 | Inpatient (IN) | payer MEDICAID ==
[2019-11-13 10:29] LABS: HEMOGLOBIN 13.9 g/dL (12.0-15.5); MEAN CORPUSCULAR HEMOGLOBIN 31.2 pg (27.0-33.4); MEAN CORPUSCULAR VOLUME 92 fl (80-97); PLATELET COUNT 235 10^3/uL (150-450); RED BLOOD COUNT 4.46 10^6/uL (3.72-5.28); RED CELL DISTRIBUTION WIDTH 13.4 % (11.5-14.0); WHITE BLOOD COUNT 6.3 10^3/uL (4.0-10.5)
[2019-11-13 10:41] LABS: APPEARANCE,URINE SLIGHTLY-CLOUDY; BILIRUBIN,URINE NEGATIVE (NEGATIVE); COLOR,URINE YELLOW; GLUCOSE, URINE NEGATIVE (NEGATIVE); KETONES,URINE NEGATIVE (NEGATIVE); LEUKOCYTE ESTERASE,URINE TRACE (NEGATIVE); NITRITE,URINE NEGATIVE (NEGATIVE); PROTEIN,URINE 30 mg/dL (NEGATIVE); URINE SPECIFIC GRAVITY 1.028
[2019-11-13 10:52] LABS: ALBUMIN 4.1 g/dL (3.5-5.0); ALKALINE PHOSPHATASE 91 U/L (38-126); ANION GAP 9 (5-19); ASPARTATE AMINO TRANSFERASE 29 U/L (14-36); BILIRUBIN,DIRECT 0.2 mg/dL (0.0-0.4); BILIRUBIN,TOTAL 0.4 mg/dL (0.2-1.3); BLOOD UREA NITROGEN 20 mg/dL (7-20); CALCIUM 8.8 mg/dL (8.4-10.2); CARBON DIOXIDE 26 mmol/L (22-30); CHLORIDE 105 mmol/L (98-107); GLUCOSE 96 mg/dL (75-110); POTASSIUM 4.4 mmol/L (3.6-5.0); TOTAL PROTEIN 6.6 g/dL (6.3-8.2)
--- NOTE | 2019-11-13 11:19 | EKG REPORT ---
SEVERITY:- BORDERLINE ECG - SINUS RHYTHM BORDERLINE T ABNORMALITIES, ANTERIOR LEADS : Confirmed by: Mika Sanders MD 13-Nov-2019 11:17:58
--- NOTE | 2019-11-16 10:45 | RADIOLOGY REPORT (SQ) ---
EXAM DESCRIPTION: CHEST SINGLE VIEW IMAGES COMPLETED DATE/TIME: 11/16/2019 9:47 am REASON FOR STUDY: PREOP COMPARISON: 05/22/2019 EXAM PARAMETERS: NUMBER OF VIEWS: One view. TECHNIQUE: Single frontal radiographic view of the chest acquired. RADIATION DOSE: NA LIMITATIONS: None. FINDINGS: LUNGS AND PLEURA: No opacities, masses or pneumothorax. No pleural effusion. MEDIASTINUM AND HILAR STRUCTURES: No masses. Contour normal. HEART AND VASCULAR STRUCTURES: Heart normal in size. Normal vasculature. BONES: No acute findings. HARDWARE: patient monitor. OTHER: No other significant finding. IMPRESSION: NO ACUTE RADIOGRAPHIC FINDING IN THE CHEST. TECHNICAL DOCUMENTATION: JOB ID: [id number] [employer]- All Rights Reserved Reading location - IP/workstation name: [email or web address]
[~2019-11-18 08:25] MED LIST changes: +CEFAZOLIN 1 GM/D5W RTU 1 GM/50 ML RTUPB IV PRN; -CEFAZOLIN SODIUM 1 GM in DEXTROSE 5%-WATER 50 ML IV PRN; -LACTATED RINGERS 1000 ML IV PRN; +NORMAL SALINE 1000 ML (RENAL PATIENTS) IV PRN
[2019-11-18] MEDS ORDERED: FENTANYL CITRATE INJ/PF 250 MCG/5 ML AMPULE ONE (09:49)
[2019-11-18] MEDS ORDERED: KETAMINE HCL INJ 500 MG/10 ML VIAL ONE (09:49)
[2019-11-18] MEDS ORDERED: HYDROMORPHONE HCL INJ/PF 2 MG/ML AMPULE ONE ×2 (09:49→13:11)
[2019-11-18] MEDS ORDERED: MIDAZOLAM 2 MG/2 ML INJ ONE (09:50)
[2019-11-18] MEDS ORDERED: PROPOFOL INJ 200 MG/20 ML VIAL IV ONE (09:50)
[2019-11-18] MEDS ORDERED: BUPIVACAINE HCL 0.25 % INJ/PF (2.5 MG/1 ML) 30 ML VIAL ONE (10:14)
[2019-11-18] MEDS ORDERED: CEFAZOLIN 1 GM/D5W RTU 1 GM/50 ML RTUPB IV ONE (10:24)
[2019-11-18] MEDS ORDERED: CEFAZOLIN INJ 1 GM VIAL ONE (10:59)
[2019-11-18] MEDS ORDERED: PROMETHAZINE HCL INJ 25 MG/1 ML VIAL IV PRN ×2 (11:25)
[2019-11-18] MEDS ORDERED: DIPHENHYDRAMINE HCL 50 MG/ML VIAL IV PRN (11:25)
[2019-11-18] MEDS ORDERED: MEPERIDINE HCL/PF INJ 25 MG/1 ML DISP.SYRIN IV PRN (11:25)
[2019-11-18] MEDS ORDERED: FENTANYL CITRATE INJ/PF 100 MCG/2 ML AMPUL IV PRN ×3 (11:25)
[2019-11-18] MEDS ORDERED: FENTANYL CITRATE INJ/PF 100 MCG/2 ML AMPUL ONE (12:23)
[2019-11-18] MEDS ORDERED: ONDANSETRON 4 MG TAB.RAPDIS PO PRN (12:45)
[2019-11-18] MEDS: HYDROMORPHONE HCL INJ/PF 2 MG/ML AMPULE IV PRN ×3 (13:05→20:20)
[2019-11-18] MEDS ORDERED: MORPHINE SULFATE 10 MG/ML INJ ONE (13:06)
[2019-11-18] MEDS ORDERED: ONDANSETRON HCL INJ/PF 4 MG/2 ML SDV ONE ×2 (13:06→13:47)
[2019-11-18] MEDS ORDERED: ATROPINE SULFATE INJ 1 MG/10 ML DISP.SYRIN IV ONE (13:20)
[2019-11-18] MEDS ORDERED: SUCCINYLCHOLINE CHLORIDE INJ 200 MG/10 ML VIAL ONE (13:47)
[2019-11-18] MEDS ORDERED: DEXAMETHASONE SOD PHOSPHATE INJ 4 MG/1 ML VIAL ONE (13:47)
[2019-11-18] MEDS ORDERED: NEOSTIGMINE METHYLSULFATE 10 MG/10 ML VIAL ONE (13:47)
[2019-11-18] MEDS ORDERED: GLYCOPYRROLATE 1 MG/5 ML VIAL ONE (13:47)
[2019-11-18] MEDS ORDERED: ROCURONIUM BROMIDE INJ 50 MG/5 ML VIAL IV ONE (13:47)
[2019-11-18] MEDS ORDERED: LIDOCAINE 2% INJ-PF (20 MG/ML) 2 ML AMPUL ONE (13:47)
[2019-11-18] MEDS: IBUPROFEN 800 MG TABLET PO SCH ×2 (15:14→21:05)
[2019-11-18] MEDS: DEXTROSE 5%-LACTATED RINGERS 1,000 ML IV PRN (17:24)
[2019-11-18] MEDS ORDERED: TRAZODONE HCL 50 MG TABLET PO PRN (18:16)
[2019-11-18] MEDS: TRAMADOL HCL 50 MG TABLET PO PRN (18:32)
[2019-11-18] MEDS: GABAPENTIN 300 MG CAPSULE PO SCH (22:03)
[2019-11-18] MEDS: OXCARBAZEPINE 150 MG TABLET PO SCH (22:03)
[2019-11-18] MEDS: FLUOXETINE HCL 20 MG CAPSULE PO SCH (22:04)
[2019-11-18] MEDS: ROPINIROLE HCL 1 MG TABLET PO SCH (22:05)
[2019-11-19] MEDS: DEXTROSE 5%-LACTATED RINGERS 1,000 ML IV PRN (01:36)
[2019-11-19] MEDS: HYDROMORPHONE HCL INJ/PF 2 MG/ML AMPULE IV PRN ×4 (02:40→21:32)
[2019-11-19] MEDS: FLUOXETINE HCL 20 MG CAPSULE PO SCH ×3 (05:56→21:32)
[2019-11-19] MEDS: IBUPROFEN 800 MG TABLET PO SCH ×3 (06:42→21:40)
--- NOTE | 2019-11-19 07:27 | PDOC PROGRESS REPORT ---
Subjective Progress Note for:: 11/19/19 Subjective:: pt has no complaints Reason For Visit: N93.8 OTHER SPECIFIED ABNORMAL UTERINE AND VAGINAL Physical Exam - Physical Exam Vital Signs: Temp Pulse Resp BP Pulse Ox 98.8 F 85 17 108/52 L 95 11/19/19 03:53 11/19/19 03:53 11/19/19 03:53 11/19/19 03:53 11/19/19 03:53 Intake & Output 11/18/19 11/19/19 11/20/19 06:59 06:59 06:59 Intake Total 3190 Output Total 200 Balance 2990 Weight 92.2 kg General appearance: PRESENT: no acute distress Respiratory exam: PRESENT: clear to auscultation wivler Cardiovascular exam: PRESENT: RRR GI/Abdominal exam: PRESENT: soft - incision clean no signs of infection Result Laboratory Results: 11/13/19 09:51 11/13/19 09:51 Impressions: Chest X-Ray 11/16/19 00:00 IMPRESSION: NO ACUTE RADIOGRAPHIC FINDING IN THE CHEST. Assessment & Plan - Diagnosis (1) Post-menopausal bleeding Is this a current diagnosis for this admission?: Yes - Time Time Spent with patient: Less than 15 minutes Level of Care: MEDICAL Medications reviewed and adjusted accordingly: Yes Anticipated discharge: Home Anticipated DC Timeframe: within 24 hours
[2019-11-19] MEDS ORDERED: ACETAMINOPHEN 325 MG TABLET PO PRN (07:28)
[2019-11-19] MEDS ORDERED: AMLODIPINE BESYLATE 5 MG TABLET PO SCH (10:00)
[2019-11-19] MEDS: PHOSPHORUS #1 250 MG TABLET PO SCH ×3 (10:04→18:36)
[2019-11-19] MEDS: OXCARBAZEPINE 150 MG TABLET PO SCH ×2 (10:04→21:31)
[2019-11-19] MEDS: TRAMADOL HCL 50 MG TABLET PO PRN (12:30)
[2019-11-19] MEDS ORDERED: FLUCONAZOLE 100 MG TABLET PO SCH (14:00)
[2019-11-19] MEDS ORDERED: TIZANIDINE HCL 4 MG TABLET PO SCH (18:00)
[2019-11-19] MEDS: GABAPENTIN 300 MG CAPSULE PO SCH (21:31)
[2019-11-19] MEDS: ROPINIROLE HCL 1 MG TABLET PO SCH (21:31)
[2019-11-20] MEDS: DEXTROSE 5%-LACTATED RINGERS 1,000 ML IV PRN (03:59)
[2019-11-20] MEDS: HYDROMORPHONE HCL INJ/PF 2 MG/ML AMPULE IV PRN (05:42)
[2019-11-20] MEDS: FLUOXETINE HCL 20 MG CAPSULE PO SCH (05:42)
[2019-11-20] MEDS: IBUPROFEN 800 MG TABLET PO SCH (05:50)
--- NOTE | 2019-11-20 07:31 | PDOC DISCHARGE SUMMARY ---
Impression - Admit/DC Date/PCP Admission Date/Primary Care Provider: 11/18/19 08:25 FELICIA BARKLEY MD Discharge Date: 11/20/19 - Discharge Diagnosis (1) Post-menopausal bleeding Is this a current diagnosis for this admission?: Yes - Additional Information Resuscitation Status: Do Not Resuscitate Discharge Diet: As Tolerated Discharge Activity: Activity As Tolerated, Balance Activity w/Rest, No Driving, Energy Conservation, No Lifting Over 10 Pounds, No Lifting/Push/Pulling, Pelvic Rest, Slowly Increase Activity, No tub bath, Walk Frequently Referrals: FELICIA BARKLEY MD [Primary Care Provider] - JALYN SHAIKH MD [ACTIVE STAFF] - 11/27/19 9:30 am (PLEASE CALL THE OFFICE FOR QUESTIONS AND CONCERNS.) Home Medications: Fluoxetine HCl [Prozac 20 mg Capsule] 20 mg PO Q8 11/24/15 Amlodipine Besylate [Norvasc 5 mg Tablet] 5 mg PO DAILY 05/15/19 Oxcarbazepine 600 mg PO Q12 05/15/19 Ropinirole HCl 0.5 mg PO QHS 05/15/19 Tizanidine HCl 4 mg PO QPM 05/15/19 Trazodone HCl 150 mg PO HSP PRN 05/15/19 Gabapentin [Neurontin 300 mg Capsule] 900 mg PO QHS 05/22/19 Tramadol HCl [Ultram 50 mg Tablet] 50 mg PO DAILYP PRN 05/22/19 Phosphorus #1 [K-Phos Neutral 250 Mg Tablet] 250 mg PO TID 11/14/19 History of Present Illiness History of Present Illness: MARY CROCKER is a 49 year old female admited for [facility] BS&O for pmb Hospital Course Hospital Course: benign post op course tolerating diet and bowel function good Physical Exam - Physical Exam Vital Signs: Temp Pulse Resp BP Pulse Ox 99.4 F 87 18 147/77 H 99 11/20/19 03:38 11/20/19 03:38 11/20/19 03:38 11/20/19 03:38 11/20/19 03:38 Intake & Output 11/19/19 11/20/19 11/21/19 06:59 06:59 06:59 Intake Total 3190 1400 Output Total 200 Balance 2990 1400 Weight 92.2 kg General appearance: PRESENT: no acute distress Respiratory exam: PRESENT: clear to auscultation wilver Cardiovascular exam: PRESENT: RRR GI/Abdominal exam: PRESENT: soft Results Laboratory Results: WBC 6.3 10^3/uL (4.0-10.5) 11/13/19 09:51 RBC 4.46 10^6/uL (3.72-5.28) 11/13/19 09:51 Hgb 13.9 g/dL (12.0-15.5) 11/13/19 09:51 Hct 41.0 % (36.0-47.0) 11/13/19 09:51 MCV 92 fl (80-97) 11/13/19 09:51 MCH 31.2 pg (27.0-33.4) 11/13/19 09:51 MCHC 34.0 g/dL (32.0-36.0) 11/13/19 09:51 RDW 13.4 % (11.5-14.0) 11/13/19 09:51 Plt Count 235 10^3/uL (150-450) 11/13/19 09:51 Sodium 140.2 mmol/L (137-145) 11/13/19 09:51 Potassium 4.4 mmol/L (3.6-5.0) 11/13/19 09:51 Chloride 105 mmol/L (98-107) 11/13/19 09:51 Carbon Dioxide 26 mmol/L (22-30) 11/13/19 09:51 Anion Gap 9 (5-19) 11/13/19 09:51 BUN 20 mg/dL (7-20) 11/13/19 09:51 Creatinine 0.80 mg/dL (0.52-1.25) 11/13/19 09:51 Est GFR ( Amer) > 60 (>60) 11/13/19 09:51 Est GFR (MDRD) Non-Af > 60 (>60) 11/13/19 09:51 Glucose 96 mg/dL (75-110) 11/13/19 09:51 Calcium 8.8 mg/dL (8.4-10.2) 11/13/19 09:51 Total Bilirubin 0.4 mg/dL (0.2-1.3) 11/13/19 09:51 Direct Bilirubin 0.2 mg/dL (0.0-0.4) 11/13/19 09:51 Neonat Total Bilirubin Not Reportable 11/13/19 09:51 Neonat Direct Bilirubin Not Reportable 11/13/19 09:51 Neonat Indirect Bili Not Reportable 11/13/19 09:51 AST 29 U/L (14-36) 11/13/19 09:51 ALT 40 U/L (<35) H 11/13/19 09:51 Alkaline Phosphatase 91 U/L (38-126) 11/13/19 09:51 Total Protein 6.6 g/dL (6.3-8.2) 11/13/19 09:51 Albumin 4.1 g/dL (3.5-5.0) 11/13/19 09:51 Urine Color YELLOW 11/13/19 09:30 Urine Appearance SLIGHTLY-CLOUDY 11/13/19 09:30 Urine pH 6.0 (5.0-9.0) 11/13/19 09:30 Ur Specific [place] 1.028 11/13/19 09:30 Urine Protein 30 mg/dL (NEGATIVE) H 11/13/19 09:30 Urine Glucose (UA) NEGATIVE mg/dL (NEGATIVE) 11/13/19 09:30 Urine Ketones NEGATIVE mg/dL (NEGATIVE) 11/13/19 09:30 Urine Blood NEGATIVE (NEGATIVE) 11/13/19 09:30 Urine Nitrite NEGATIVE (NEGATIVE) 11/13/19 09:30 Urine Bilirubin NEGATIVE (NEGATIVE) 11/13/19 09:30 Urine Urobilinogen 4.0 mg/dL (<2.0) H 11/13/19 09:30 Ur Leukocyte Esterase TRACE (NEGATIVE) H 11/13/19 09:30 Urine WBC (Auto) 4 /HPF 11/13/19 09:30 Urine RBC (Auto) 3 /HPF 11/13/19 09:30 Squamous Epi Cells Auto <1 /HPF 11/13/19 09:30 Urine Mucus (Auto) MOD /LPF 11/13/19 09:30 Urine Ascorbic Acid 20 (NEGATIVE) H 11/13/19 09:30 Urine HCG, Qual NEGATIVE (NEGATIVE) 11/18/19 08:58 COVID-19 Source NASOPHARYNGEAL 11/13/19 09:32 COVID-19 (DUSTIN) NOT DETECTED 11/13/19 09:32 Blood Type A POSITIVE 09/12/20 09:22 Antibody Screen NEGATIVE 11/16/19 09:22 Impressions: Chest X-Ray 11/16/19 00:00 IMPRESSION: NO ACUTE RADIOGRAPHIC FINDING IN THE CHEST. Plan Health Concerns: none Time Spent: Less than 30 Minutes Stroke Is this a Stroke Patient?: No Acute Heart Failure Is this a Heart Failure Patient?: No
[2019-11-20 07:34] VITALS: BP 122/66
--- NOTE | 2019-12-05 09:02 | Operative Report ---
Operative Report DATE OF SURGERY: 11/18/19 PREOPERATIVE DIAGNOSIS: Postmenopausal bleeding POSTOPERATIVE DIAGNOSIS: Same plus adhesions OPERATION: JAVI/BSO no lysis of adhesions 1ST LAST SAWYER: JI MELGAR ANESTHESIA: GA TISSUE REMOVED OR ALTERED: Uterus tubes and ovaries COMPLICATIONS: None ESTIMATED BLOOD LOSS: Slightly 200 cc INTRAOPERATIVE FINDINGS: Multiple adhesions on the right from the omentum to the right pelvic sidewall PROCEDURE: Patient placed in a supine position prepped draped sterile fashion. Pfannenstiel incision was made to an existing Pfannenstiel eschar eschar. Incision extended through the subcutaneous tissue and fat sharp dissection fascia artery divided the rectus muscle bluntly sharp divided parietoperitoneum was in with sharp dissection. Bowel was packed with wet saline packs and a retractor was then placed. Multiple adhesions from the right sidewall to the right adnexa obscuring the visualization of the right tube and ovary. These were taken down with blunt and sharp dissection until the round ligament could be identified. Round ligament identified sutured and divided Maribell's free space was found and the right ventricular pelvic was clamped divided and suture 2-0 Vicryl. On the left round was identified and sutured and divided Maribell's free space was entered the inferior pelvic was clamped divided and suture with free tie of 2-0 Vicryl followed by suture type II 0 Vicryl. Serial clamps each uterus each pedicle being clamped divided and suture 2-0 Vicryl this was continued down to the level of the cervix. The tissue below the cervix was crossclamped and tubes uterus and ovaries were removed with sharp dissection. The vaginal cuff was then closed interrupted sutures of 2-0 Vicryl. It was irrigated with normal saline and hemostasis was noted. Retractors and bowel packs were removed. Fascia was closed running suture of 0 Vicryl. Subcu was then plicated midline interrupted 0 chromic. Fascia was closed with skin clips. Patient is urinating clear without procedure she was taken recovery room good condition.
== END 2019-11-20 08:25 | disposition home or self-care (01) | DRG 743 ==
LOC: INOR 08:25 → EDSTATUS 10:30 → 2N 13:39
PROVIDERS: ADMIT Obstetrics & Gynecology Gynecology; ATTEND Obstetrics & Gynecology Gynecology
PROC: 0UT70ZZ Resection of Bilateral Fallopian Tubes, Open Approach (ICD-10-PCS; 2019-11-18)
PROC: 0UT20ZZ Resection of Bilateral Ovaries, Open Approach (ICD-10-PCS; 2019-11-18)
PROC: 0UT90ZZ Resection of Uterus, Open Approach (ICD-10-PCS; principal; 2019-11-18 10:30)
DX: N93.8 Other specified abnormal uterine and vaginal bleeding (principal); N95.0 Postmenopausal bleeding; N73.6 Female pelvic peritoneal adhesions (postinfective); Z79.899 Other long term (current) drug therapy; Z86.74 Personal history of sudden cardiac arrest; Z20.828 Contact with and (suspected) exposure to other viral communicable diseases; Z98.84 Bariatric surgery status; Z88.0 Allergy status to penicillin; Z88.3 Allergy status to other anti-infective agents; Z88.5 Allergy status to narcotic agent; Z80.3 Family history of malignant neoplasm of breast; Z80.42 Family history of malignant neoplasm of prostate
CPT/HCPCS: 36415; 71045; 80053; 81001; 81025; 840; 85027; 86850; 86900; 86901; 87635; 88307; 93005; 93010; C1758; C9803; J0330; J0461; J0690; J1100; J1170; J2250; J2270; J2405; J2704; J2710; J3010; J3490; J7121

== ENCOUNTER 2019-11-20 19:29 | Emergency (ER) | payer MEDICAID ==
--- NOTE | 2019-11-20 20:20 | ER Document Report ---
ED Medical Screen (RME) - General Chief Complaint: Chest Pain Stated Complaint: HAND SWELLING AND CHEST PAIN Time Seen by Provider: 11/20/19 20:13 Primary Care Provider: FELICIA BARKLEY MD [Primary Care Provider] - Follow up as needed Mode of Arrival: Wheelchair Information source: Patient Notes: 49-year-old female presented to ED for complaint of severe abdominal pain right arm pain and swelling and chest pain. She states she was discharged today from the hospital after a total hysterectomy on Monday. She states she went home today. She states that her pain medicine did not arrive until about an hour for coming to the emergency room. She states she was scared to take the pain medicine until she knew what was going on with her. She is alert oriented res pirations regular nonlabored speaking in full sentences. She states she does have a history of a total hysterectomy 2 C-sections several knee surgeries her gallbladder removed sinus surgery and a lumpectomy. She states she does not smoke she very rarely drinks and does not use any illicit drugs. I have greeted and performed a rapid initial assessment of this patient. A comprehensive ED assessment and evaluation of the patient, analysis of test results and completion of medical decision making process will be conducted by an additional ED providers. TRAVEL OUTSIDE OF THE [place] IN LAST 30 DAYS: No - Related Data Allergies/Adverse Reactions: codeine Allergy (Severe, Verified 11/20/19 20:13) Shortness of Breath doxycycline Allergy (Severe, Verified 11/20/19 20:13) Shortness of Breath erythromycin base Allergy (Severe, Verified 11/20/19 20:13) rash Penicillins Allergy (Severe, Verified 11/20/19 20:13) Hives oxycodone [From Percocet] Adverse Reaction (Severe, Verified 11/20/19 20:13) n and v Past Medical History - Social History Family history: Reviewed & Not Pertinent - Past Medical History Cardiac Medical History: Reports: Hx Coronary Artery Disease - VENOUS STENOSIS, Hx Hypertension Denies: Hx Atrial Fibrillation, Hx Congestive Heart Failure, Hx Heart Attack, Hx Hypercholesterolemia, Hx Peripheral Vascular Disease, Hx Pulmonary Embolism, Hx Heart Murmur Pulmonary Medical History: Reports: Hx Asthma - MILD, Hx Bronchitis, Hx Pneumonia Denies: Hx COPD, Hx Respiratory Failure, Hx Sleep Apnea, Hx Tuberculosis Neurological Medical History: Renal/ Medical History: Reports: Hx End Stage Renal Disease - Stage 3, Hx Ovarian Cysts. Denies: Hx Kidney Stones, Hx Peritoneal Dialysis, Hx Pelvic Inflammatory Disease Malignancy Medical History: Denies: Hx Breast Cancer, Hx Cervical Cancer, Hx Leukemia, Hx Lung Cancer, Hx Ovarian Cancer GI Medical History: Reports: Hx Hiatal Hernia. Denies: Hx Crohn's Disease, Hx Gastroesophageal Reflux Disease, Hx Hepatitis, Hx Irritable Bowel, Hx Liver Failure, Hx Pancreatitis, Hx Ulcer Musculoskeltal Medical History: Reports Hx Arthritis - GENERALIZED, Denies Hx Fibromyalgia, Denies Hx Muscular Dystrophy Psychiatric Medical History: Reports: Hx Depression Denies: Hx Bipolar Disorder, Hx Post Traumatic Stress Disorder, Hx Schizophrenia Traumatic Medical History: Denies: Hx Fractures Infectious Medical History: Denies: Hx Hepatitis Past Surgical History: Reports: Hx Cholecystectomy, Hx Tubal Ligation. Denies: Hx Appendectomy, Hx Bowel Surgery, Hx Section, Hx Colostomy, Hx Coronary Artery Bypass Graft, Hx Gastric Bypass Surgery, Hx Herniorrhaphy, Hx Hysterectomy, Hx Mastectomy, Hx Open Heart Surgery, Hx Pacemaker, Hx Tonsillectomy - Immunizations Hx Diphtheria, Pertussis, Tetanus Vaccination: Yes Physical Exam - Vital signs Vitals: Temp Pulse Resp BP Pulse Ox 100 F 95 20 157/84 H 98 11/20/19 19:42 11/20/19 19:42 11/20/19 19:42 11/20/19 19:42 11/20/19 19:42 Course - Vital Signs Vital signs: Temp Pulse Resp BP Pulse Ox 100 F 95 20 157/84 H 98 11/20/19 19:42 11/20/19 19:42 11/20/19 19:42 11/20/19 19:42 11/20/19 19:42 Doctor's Discharge - Discharge Referrals: FELICIA BARKLEY MD [Primary Care Provider] - Follow up as needed
--- NOTE | 2019-11-20 21:11 | RADIOLOGY REPORT (SQ) ---
EXAM DESCRIPTION: X-ray, two views of the chest CLINICAL HISTORY: 49 years Female, Chest pain COMPARISON: Single view of the chest November 16, 2019 FINDINGS: Lungs: Lungs are clear. No pneumonia or edema. No pneumothorax or pleural effusion. Mediastinum: Cardiac and mediastinal silhouette are unchanged. There is a cardiac monitoring implanted over the left anterior chest wall. Over Bones: Osseous structures are normal. IMPRESSION: No acute process. No significant interval change.
[2019-11-20 21:32] LABS: APPEARANCE,URINE CLEAR; BILIRUBIN,URINE NEGATIVE (NEGATIVE); COLOR,URINE YELLOW; GLUCOSE, URINE NEGATIVE (NEGATIVE); KETONES,URINE NEGATIVE (NEGATIVE); LEUKOCYTE ESTERASE,URINE NEGATIVE (NEGATIVE); NITRITE,URINE NEGATIVE (NEGATIVE); PROTEIN,URINE NEGATIVE (NEGATIVE); URINE SPECIFIC GRAVITY 1.012; UROBILINOGEN,URINE NEGATIVE mg/dL (<2.0)
[2019-11-20 21:47] LABS: ABSOLUTE BASOPHILS # (AUTO) 0.1 10^3/uL (0.0-0.2); ABSOLUTE EOSINOPHILS # (AUTO) 0.4 10^3/uL (0.0-0.6); ABSOLUTE LYMPHOCYTES (AUTO) 2.2 10^3/uL (0.5-4.7); ABSOLUTE MONOCYTES (AUTO) 0.4 10^3/uL (0.1-1.4); BASOPHILS % (AUTO) 1.1 % (0-2); EOSINOPHILS % (AUTO) 5.9 % (0-6); HEMATOCRIT 30.9 % (36.0-47.0); HEMOGLOBIN 10.7 g/dL (12.0-15.5); LYMPHOCYTES % (AUTO) 31.3 % (13-45); MEAN CORPUSCULAR HEMOGLOBIN 31.7 pg (27.0-33.4); MEAN CORPUSCULAR HGB CONC 34.6 g/dL (32.0-36.0); MEAN CORPUSCULAR VOLUME 92 fl (80-97); MONOCYTES % (AUTO) 6.1 % (3-13); PLATELET COUNT 202 10^3/uL (150-450); RED BLOOD COUNT 3.37 10^6/uL (3.72-5.28); RED CELL DISTRIBUTION WIDTH 13.2 % (11.5-14.0); SEGMENTED NEUTROPHILS % (AUTO) 55.6 % (42-78); TOTAL CELLS COUNTED % (AUTO) 100 %; WHITE BLOOD COUNT 7.1 10^3/uL (4.0-10.5)
[2019-11-20 22:08] LABS: ALBUMIN 3.4 g/dL (3.5-5.0); ALKALINE PHOSPHATASE 274 U/L (38-126); ANION GAP 6 (5-19); ASPARTATE AMINO TRANSFERASE 611 U/L (14-36); BILIRUBIN,DIRECT 0.3 mg/dL (0.0-0.4); BILIRUBIN,TOTAL 0.5 mg/dL (0.2-1.3); BLOOD UREA NITROGEN 6 mg/dL (7-20); CALCIUM 8.5 mg/dL (8.4-10.2); CARBON DIOXIDE 27 mmol/L (22-30); CHLORIDE 107 mmol/L (98-107); GLUCOSE 96 mg/dL (75-110); POTASSIUM 3.6 mmol/L (3.6-5.0)
[2019-11-20 23:45] VITALS: BP 142/77
--- NOTE | 2019-11-21 09:17 | EKG REPORT ---
SEVERITY:- ABNORMAL ECG - SINUS RHYTHM CONSIDER POSTERIOR INFARCT MINIMAL ST DEPRESSION, ANTERIOR LEADS : Confirmed by: Aniya Gibson 21-Nov-2019 09:17:00
== END 2019-11-21 02:00 | disposition left against medical advice (07) ==
LOC: ER 19:29
DX: R10.9 Unspecified abdominal pain (principal); M79.601 Pain in right arm; M79.89 Other specified soft tissue disorders; R07.9 Chest pain, unspecified; Z90.710 Acquired absence of both cervix and uterus; Z90.49 Acquired absence of other specified parts of digestive tract; Z88.6 Allergy status to analgesic agent; Z88.5 Allergy status to narcotic agent; Z88.1 Allergy status to other antibiotic agents; Z53.20 Procedure and treatment not carried out because of patient's decision for unspecified reasons
CPT/HCPCS: 36415; 71046; 80053; 81001; 83690; 84484; 85025; 87086; 87088; 87186; 93005; 93010; 99281

== ENCOUNTER 2020-01-20 10:34 | Emergency (ER) | payer MEDICAID ==
[2020-01-20] MEDS ORDERED: NORMAL SALINE 1000 ML 1,000 ML IV ONE (11:28)
--- NOTE | 2020-01-20 11:50 | ER Document Report ---
ED Respiratory Problem - General Stated Complaint: COUGH, CONGESTION Time Seen by Provider: 01/20/20 11:10 Primary Care Provider: FELICIA BARKLEY MD [Primary Care Provider] - Follow up as needed Notes: 49-year-old female comes into the emergency room complaining of upper respiratory infection symptoms and vertigo. Patient states she has been coughing and having upper respiratory symptoms for the last 2 weeks. She has a history of chronic vertigo but states her vertigo feels a little worse than normal. She saw her family doctor who diagnosed with her with benign positional vertigo. They tried some meclizine but patient still states she is having the upper respiratory symptoms. Patient denies chest pain. Denies shortness of breath complains of the room spinning around her. Worse with head movement better with laying her head down and still which is typical for vertigo she states that this feels more severe. Denies any extremity numbness tingling or weakness. Denies any motor weakness. Denies blurred vision. Has had some nausea. Has been coughing a lot with a scratchy throat. TRAVEL OUTSIDE OF THE [place] IN LAST 30 DAYS: No - Related Data Allergies/Adverse Reactions: codeine Allergy (Severe, Verified 01/20/20 11:36) Shortness of Breath doxycycline Allergy (Severe, Verified 01/20/20 11:36) Shortness of Breath erythromycin base Allergy (Severe, Verified 01/20/20 11:36) rash Penicillins Allergy (Severe, Verified 01/20/20 11:36) Hives oxycodone [From Percocet] Adverse Reaction (Severe, Verified 01/20/20 11:36) n and v Past Medical History - Social History Smoking Status: Unknown if Ever Smoked Family History: Reviewed & Not Pertinent - Past Medical History Cardiac Medical History: Reports: Hx Coronary Artery Disease - VENOUS STENOSIS, Hx Hypertension Denies: Hx Atrial Fibrillation, Hx Congestive Heart Failure, Hx Heart Attack, Hx Hypercholesterolemia, Hx Peripheral Vascular Disease, Hx Pulmonary Embolism, Hx Heart Murmur Pulmonary Medical History: Reports: Hx Asthma - MILD, Hx Bronchitis, Hx Pneumonia Denies: Hx COPD, Hx Respiratory Failure, Hx Sleep Apnea, Hx Tuberculosis Neurological Medical History: Renal/ Medical History: Reports: Hx End Stage Renal Disease - Stage 3, Hx Ovarian Cysts. Denies: Hx Kidney Stones, Hx Peritoneal Dialysis, Hx Pelvic Inflammatory Disease Malignancy Medical History: Denies: Hx Breast Cancer, Hx Cervical Cancer, Hx Leukemia, Hx Lung Cancer, Hx Ovarian Cancer GI Medical History: Reports: Hx Hiatal Hernia. Denies: Hx Crohn's Disease, Hx Gastroesophageal Reflux Disease, Hx Hepatitis, Hx Irritable Bowel, Hx Liver Failure, Hx Pancreatitis, Hx Ulcer Musculoskeletal Medical History: Reports Hx Arthritis - GENERALIZED, Denies Hx Fibromyalgia, Denies Hx Muscular Dystrophy Psychiatric Medical History: Reports: Hx Depression Denies: Hx Bipolar Disorder, Hx Post Traumatic Stress Disorder, Hx Schizophrenia Traumatic Medical History: Denies: Hx Fractures Infectious Medical History: Denies: Hx Hepatitis Past Surgical History: Reports: Hx Cholecystectomy, Hx Tubal Ligation. Denies: Hx Appendectomy, Hx Bowel Surgery, Hx Section, Hx Colostomy, Hx Coronary Artery Bypass Graft, Hx Gastric Bypass Surgery, Hx Herniorrhaphy, Hx Hysterectomy, Hx Mastectomy, Hx Open Heart Surgery, Hx Pacemaker, Hx Tonsillectomy - Immunizations Hx Diphtheria, Pertussis, Tetanus Vaccination: Yes Review of Systems - Review of Systems Constitutional: Chills, Fever EENT: Nose congestion, Sinus pressure, Throat pain, Vertigo. denies: Nose pain, Difficulty swallowing Cardiovascular: denies: Chest pain, Palpitations, Dyspnea, Edema Respiratory: Cough. denies: Hurts to breathe, Short of breath, Sputum, Wheezing Gastrointestinal: Nausea. denies: Vomiting Genitourinary: denies: Dysuria, Flank pain Neurological/Psychological: denies: Headaches, Numbness, Tingling -: Yes All other systems reviewed and negative Physical Exam - Vital signs Vitals: Temp Pulse Resp BP Pulse Ox 98.4 F 62 18 156/94 H 99 01/20/20 13:16 01/20/20 13:16 01/20/20 13:16 01/20/20 13:16 01/20/20 13:16 - Notes Notes: GENERAL_APPEARANCE: well_nourished, alert, cooperative, no_acute_distress, no_obvious_discomfort. VITALS: reviewed, see vital signs table. HEAD: no_swelling\tenderness on the head. EYES: PERRL, EOMI, conjunctiva_clear. Nystagmus with head turning NOSE: no_nasal_discharge. EARS: Both TM's clear MOUTH: (-)decreased moisture. THROAT: Mild_throat_inflammation, no_airway_obstruction. no_lymphadenopathy NECK: supple, no_neck_tenderness, (-)thyromegaly. BACK: no_back_tenderness. CHEST_WALL: no_chest_tenderness. LUNGS: no_wheezing, no_rales, no_rhonchi, (-)accessory muscle use, good air exchange bilateral. HEART: normal_rate, normal_rhythm, normal_S1, normal_S2, (-)S3, (-)S4, no_murmur, no_rub. ABDOMEN: soft, no_abd_tenderness, (-)guarding, (-)rebound, no_organomegaly, no_abd_masses. EXTREMITIES: strength 5/5 in all_extremities, good pulses in all_extremities, no_swelling\tenderness in the extremities, no_edema. SKIN: warm, dry, good_color, no_rash. MENTAL_STATUS: speech_clear, oriented_X_3, normal_affect, responds_a ppropriately to questions. NEURO: Neg Motor or Sensory Deficits on exam, CN 2-12 intact, DTR 2+ symmetric x 4, No cerbellar signs Course - Re-evaluation Re-evalutation: 01/20/20 11:49 49-year-old female presents with vertigo symptoms and upper respiratory symptoms. We will swab her for flu and Covid. Her ears look fine on my exam. We will CT scan her head however she has had known vertigo in the past we will try meclizine and a liter of IV fluids. Her URI symptoms appear mild. 01/20/20 15:14 CT scan was negative. Patient seen walking back forth to the bathroom without any significant abnormalities. She is feeling better after the meclizine. Flu was negative strep negative Covid is pending. We will place her on meclizine and Tessalon Perles. Have her follow-up with her primary care doctor. My suspicion for stroke is low. - Vital Signs Vital signs: Temp Pulse Resp BP Pulse Ox 98.4 F 62 18 156/94 H 99 01/20/20 13:16 01/20/20 13:16 01/20/20 13:16 01/20/20 13:16 01/20/20 13:16 - Laboratory Result Diagrams: 01/20/20 12:50 01/20/20 12:50 Laboratory results interpreted by me: 01/20/20 12:50 ALT 36 H - Diagnostic Test Radiology reviewed: Reports reviewed Radiology results interpreted by me: 01/20/20 15:06 Chest X-Ray 01/20/20 11:28 IMPRESSION: 1. NO ACUTE RADIOGRAPHIC FINDING IN THE CHEST. Head CT 01/20/20 11:28 IMPRESSION: No acute intracranial abnormality. EVIDENCE OF ACUTE STROKE: NO. - EKG Interpretation by Me EKG shows normal: Sinus rhythm Rate: Normal When compared to previous EKG there are: No significant change Additional EKG results interpreted by me: 01/20/20 15:07 similar to old ekg Discharge - Discharge Clinical Impression: Person under investigation for COVID-19, Vertigo Acute sinusitis Qualifiers: Sinusitis location: other Condition: Good Disposition: HOME, SELF-CARE Instructions: Vertigo ([facility]), Sinusitis ([facility]), COVID-19 Guidance for Persons Under Investigation Prescriptions: Benzonatate [Tessalon Perles 100 mg Capsule] 100 mg PO Q8HP PRN #40 capsule PRN Reason: Cough Cephalexin Monohydrate [Keflex 500 mg Capsule] 500 mg PO Q6H 5 Days capsule Meclizine HCl 25 mg PO QID PRN #30 tablet PRN Reason: Referrals: FELICIA BARKLEY MD [Primary Care Provider] - Follow up as needed
--- NOTE | 2020-01-20 12:33 | RADIOLOGY REPORT (SQ) ---
EXAM DESCRIPTION: CT HEAD WITHOUT IMAGES COMPLETED DATE/TIME: 01/20/2020 12:12 pm REASON FOR STUDY: dizziness COMPARISON: None. TECHNIQUE: Axial images acquired through the brain without intravenous contrast. Images reviewed wi th bone, brain and subdural windows. Additional sagittal and coronal reconstructions were generated. Images stored on PACS. All CT scanners at this facility use dose modulation, iterative reconstruction, and/or weight based d osing when appropriate to reduce radiation dose to as low as reasonably achievable (ALARA). [facility]: Dose Right [facility]: CareDose [facility]: Dose Right [facility]: Teradose 4D [facility]: [email or web address] RADIATION DOSE: CT Rad equipment meets quality standard of care and radiation dose reduction techniq ues were employed. CTDIvol: 53.2 mGy. DLP: 1070 mGy-cm. LIMITATIONS: None. FINDINGS: There is no acute intracranial hemorrhage, vascular territorial infarct, extra-axial fluid collection, mass effect or midline shift. The moore-white matter differentiation is preserved. The caliber of the ventricles is concordant with the degree of sulcation. There is no effacement of the cerebral sulci or basal subarachnoid cisterns. The orbits and globes are intact. The paranasal sinuses and the mastoid air cells are clear. There is no fracture of the calvarium. IMPRESSION: No acute intracranial abnormality. EVIDENCE OF ACUTE STROKE: NO. COMMENT: Quality ID # [id number]: Final reports with documentation of one or more dose reduction techniques (e.g., Automated exposure control, adjustment of the mA and/or kV according to patient size, use of iterative reconstruction technique) TECHNICAL DOCUMENTATION: JOB ID: [id number] 2010 [employer]- All Rights Reserved Reading location - IP/workstation name: [email or web address]
[2020-01-20 12:35] LABS: A TYPE INFLUENZA AG NEGATIVE (NEGATIVE); B INFLUENZA AG NEGATIVE (NEGATIVE)
--- NOTE | 2020-01-20 12:53 | RADIOLOGY REPORT (SQ) ---
EXAM DESCRIPTION: CHEST SINGLE VIEW IMAGES COMPLETED DATE/TIME: 01/20/2020 12:40 pm REASON FOR STUDY: dizziness COMPARISON: 11/20/2019 EXAM PARAMETERS: NUMBER OF VIEWS: One view. TECHNIQUE: Single frontal radiographic view of the chest acquired. RADIATION DOSE: NA LIMITATIONS: None. FINDINGS: LUNGS AND PLEURA: No opacities, masses or pneumothorax. No pleural effusion. MEDIASTINUM AND HILAR STRUCTURES: No masses. Contour normal. HEART AND VASCULAR STRUCTURES: Stable appearance. Normal vasculature. BONES: No acute findings. HARDWARE: hall monitor device overlies the anterior left chest wall, unchanged finding. None in the chest. OTHER: No other significant finding. IMPRESSION: 1. NO ACUTE RADIOGRAPHIC FINDING IN THE CHEST. TECHNICAL DOCUMENTATION: JOB ID: [id number] 2010 [employer]- All Rights Reserved Reading location - IP/workstation name: [email or web address]
[2020-01-20 13:19] LABS: ABSOLUTE BASOPHILS # (AUTO) 0.1 10^3/uL (0.0-0.2); ABSOLUTE EOSINOPHILS # (AUTO) 0.4 10^3/uL (0.0-0.6); ABSOLUTE LYMPHOCYTES (AUTO) 2.1 10^3/uL (0.5-4.7); ABSOLUTE MONOCYTES (AUTO) 0.4 10^3/uL (0.1-1.4); ABSOLUTE NEUT (AUTO) 4.6 10^3/uL (1.7-8.2); BASOPHILS % (AUTO) 0.8 % (0-2); EOSINOPHILS % (AUTO) 5.2 % (0-6); HEMATOCRIT 38.1 % (36.0-47.0); HEMOGLOBIN 12.9 g/dL (12.0-15.5); MEAN CORPUSCULAR HEMOGLOBIN 30.3 pg (27.0-33.4); MEAN CORPUSCULAR VOLUME 89 fl (80-97); MONOCYTES % (AUTO) 4.8 % (3-13); PLATELET COUNT 228 10^3/uL (150-450); RED BLOOD COUNT 4.27 10^6/uL (3.72-5.28); RED CELL DISTRIBUTION WIDTH 13.2 % (11.5-14.0); SEGMENTED NEUTROPHILS % (AUTO) 61.2 % (42-78); TOTAL CELLS COUNTED % (AUTO) 100 %; WHITE BLOOD COUNT 7.4 10^3/uL (4.0-10.5)
[2020-01-20 13:35] LABS: ALKALINE PHOSPHATASE 91 U/L (38-126); ANION GAP 6 (5-19); ASPARTATE AMINO TRANSFERASE 26 U/L (14-36); BILIRUBIN,DIRECT 0.2 mg/dL (0.0-0.4); BILIRUBIN,TOTAL 0.4 mg/dL (0.2-1.3); BLOOD UREA NITROGEN 19 mg/dL (7-20); CALCIUM 9.3 mg/dL (8.4-10.2); CARBON DIOXIDE 26 mmol/L (22-30); CHLORIDE 106 mmol/L (98-107); GLUCOSE 96 mg/dL (75-110); POTASSIUM 4.6 mmol/L (3.6-5.0); TOTAL PROTEIN 6.7 g/dL (6.3-8.2)
[2020-01-20 15:25] VITALS: BP 142/86
--- NOTE | 2020-01-20 15:52 | EKG REPORT ---
SEVERITY:- BORDERLINE ECG - SINUS RHYTHM BORDERLINE T ABNORMALITIES, INFERIOR LEADS : Confirmed by: Radha Wu MD 20-Jan-2020 15:50:55
== END 2020-01-20 15:44 | disposition home or self-care (01) ==
LOC: ER 10:34
DX: J01.90 Acute sinusitis, unspecified (principal); R42 Dizziness and giddiness; R05 Cough; R50.9 Fever, unspecified; R09.81 Nasal congestion; R07.0 Pain in throat; R11.0 Nausea; I25.10 Atherosclerotic heart disease of native coronary artery without angina pectoris; I10 Essential (primary) hypertension; J45.909 Unspecified asthma, uncomplicated; Z87.01 Personal history of pneumonia (recurrent); Z88.6 Allergy status to analgesic agent; Z88.5 Allergy status to narcotic agent; Z88.1 Allergy status to other antibiotic agents; Z88.0 Allergy status to penicillin; Z20.828 Contact with and (suspected) exposure to other viral communicable diseases
CPT/HCPCS: 93005; 99285; 96360; 36415; 85025; 87635; 80053; 84484; 87804; 71045; 70450; 93010; J7030; C9803